=== PATIENT | male | born 1950 | race Asian ===

== ENCOUNTER 2020-03-21 15:13 | Inpatient (IN) | payer MEDICARE, OTHER ==
[~2020-03-21] VITALS: Ht 162.6 cm; Wt 59.9 kg
[2020-03-21 16:15] LABS: *BILIRUBIN,URIN NEGATIVE (NEGATIVE); *CLARITY,URINE CLEAR (CLEAR); *COLOR,URINE YELLOW (YELLOW); *KETONES,URINE TRACE (NEGATIVE); LEUKOCYTE ESTERASE ,URINE NEGATIVE (NEGATIVE); NITRITE, URINE NEGATIVE (NEGATIVE); PH,URINE 5.5 (5.0-8.0); UGLUCOSE 2+ (NEGATIVE)
[2020-03-21 16:17] LABS: BASOPHILS # (AUTO) 0.1 K/uL (0.0-8.0); BASOPHILS % (AUTO) 1.1 % (0.0-2.0); EOSINOPHILS # (AUTO) 0.1 K/uL (0.0-0.7); EOSINOPHILS % (AUTO) 0.8 % (0.0-7.0); HEMATOCRIT 47.9 % (36.7-47.1); HEMOGLOBIN 16.6 g/dL (12.5-16.3); LYMPHOCYTES # (AUTO) 1.9 K/uL (20.0-40.0); LYMPHOCYTES % (AUTO) 20.4 % (20.5-51.5); MEAN CORPUSCULAR HEMOGLOBIN 29.5 uug (23.8-33.4); MEAN CORPUSCULAR HGB CONC 35 g/dL (32.5-36.3); MEAN CORPUSCULAR VOLUME 85.5 fL (73.0-96.2); MONOCYTES # (AUTO) 0.5 K/uL (2.0-10.0); MONOCYTES % (AUTO) 5.3 % (0.0-11.0); NEUTROPHILS # (AUTO) 6.6 K/uL (1.8-8.9); NEUTROPHILS % (AUTO) 72.4 % (38.5-71.5); PLATELET COUNT (AUTO) 195 K/uL (152-348); RED BLOOD CELL COUNT(AUTO) 5.61 MIL/uL (4.06-5.63); WHITE BLOOD COUNT (AUTO) 9.1 K/uL (3.6-10.2)
[2020-03-21 16:17] LABS: *BLOOD, URINE TRACE LYSED (NEGATIVE)
[2020-03-21 16:27] LABS: CARBON DIOXIDE 33 mmol/L (21-32); CHLORIDE 99 mmol/L (98-107); CREATININE 1.3 mg/dL (0.6-1.3); GLUCOSE 267 mg/dL (74-106); POTASSIUM 3.6 mmol/L (3.5-5.1); UREA NITROGEN, BLOOD 18 mg/dL (7-18)
[2020-03-21 16:33] LABS: ACETAMINOPHEN < 2.0 ug/mL (10-30); ALANINE AMINOTRANSFERASE 23 U/L (16-63); ALKALINE PHOSPHATASE 118 U/L (50-136); ASPARTATE AMINOTRANSFERASE 15 U/L (15-37); BILIRUBIN,DIRECT 0.1 mg/dL (0.0-0.2); BILIRUBIN,TOTAL 0.3 mg/dL (0.2-1.0)
[2020-03-21 16:34] LABS: ETHANOL < 3 MG/DL (0-0)
[2020-03-21 16:35] LABS: *AMPHETAMINE, URINE NEGATIVE (NEGATIVE); *CANNABINOID, URINE NEGATIVE (NEGATIVE); *COCCAINE, URINE NEGATIVE (NEGATIVE); *OPIATE, URINE NEGATIVE (NEGATIVE); *PHENCYCLIDINE SCREEN,URINE NEGATIVE (NEGATIVE)
[2020-03-21 16:40] LABS: THYROID STIMULATING HORMONE 0.858 mIU/mL (0.358-3.740)
--- NOTE | 2020-03-21 16:50 | NUR ---
PT'S DAUGHTER REQUESTED TO BRING LIST OF MEDICATIONS, IF ANY , FOR RECONCILIATION - WAITING FOR CALLBACK.
--- NOTE | 2020-03-21 17:10 | NUR ---
Called [facility] for psych eval, eta 1hr.
--- NOTE | 2020-03-21 17:36 | NUR ---
Pt eating dinner, NAD noted.
[2020-03-21 19:24] LABS: BACTERIA,URINE FEW /HPF (NONE SEEN); SQUAMOUS EPITHELIAL CELL,UR FEW /HPF (NONE SEEN); WBC,URINE 0-3 /HPF (0-3)
--- NOTE | 2020-03-21 19:58 | NUR ---
transfered to MHU via wheelchair to MHU.
[2020-03-21] MEDS ORDERED: TEMAZEPAM 7.5 MG CAPSULE PO PRN (20:00)
[2020-03-21] MEDS ORDERED: MAG HYDROX/AL HYDROX/SIMETH 30 ML LIQUID UDC PO PRN (20:00)
[2020-03-21] MEDS ORDERED: ACETAMINOPHEN 325 MG TABLET PO PRN (20:00)
[2020-03-21] MEDS ORDERED: MAGNESIUM HYDROXIDE 30 ML LIQUID UDC PO PRN (20:00)
[2020-03-21] MEDS ORDERED: LORAZEPAM 1 MG TABLET PO PRN (20:00)
[2020-03-21 20:12] VITALS: BP 125/61
[2020-03-21] MEDS ORDERED: INSULIN GLARGINE,HUM 300 UNITS/3 ML CARTRIDGE SQ ONE ×2 (20:48→21:07)
[2020-03-21] MEDS ORDERED: DEXTROSE 50% 50 ML DISP.SYRIN IV PRN (21:00)
[2020-03-21] MEDS: BLOOD SUGAR DIAGNOSTIC 1 EACH STRIP VI SCH (21:01)
[2020-03-21] MEDS ORDERED: HUM INSULIN NPH/REG INSULIN HM 70/30 1000 UNITS/10 ML VIAL SQ ONE (21:06)
[2020-03-21] MEDS: INSULIN REGULAR, HUMAN 300 UNITS/3 ML VIAL SQ PRN (21:44)
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
[2020-03-22] MEDS: BLOOD SUGAR DIAGNOSTIC 1 EACH STRIP VI SCH ×5 (06:38→20:56)
[2020-03-22 07:30] VITALS: BP 172/80
[2020-03-22] MEDS: ESCITALOPRAM OXALATE 10 MG TABLET PO SCH (09:08)
[2020-03-22] MEDS: INSULIN REGULAR, HUMAN 300 UNIT/3 ML VIAL SQ PRN ×3 (09:09→18:33)
--- NOTE | 2020-03-22 13:47 | NUR ---
Initial Discharge Plan: Pt currently resides in a home located at [address] [place] [address] with an elderly woman. Per pt's daughter, Ashlee ([phone]), pt cannot return to the home that he was residing at because the elderly woman does not feel comfortable. BENJAMÍN will work with the pt, pts family and pts MD regarding approprite discharge planning. SW will form a safe and proper discharge plan.
--- NOTE | 2020-03-22 13:48 | NUR ---
Family Contact: SW spoke with the pt's daughter, Ashlee ([phone]), and pts sister in law, Rimma ([phone]), on a conference call. Pts discharge plan was discussed as the pt cannot return to his home. SW recommended SNF and the pts sister in law stated that she lives in [place] and would like the SW to refer the pt to either [facility] SNF or [facility] SNF. SW stated that she would and will keep the pts family updated.
--- NOTE | 2020-03-22 14:12 | NUR ---
Firearms Report: Hydrate Control Tender completed and submitted a DOJ firearms report for 5150 grave disability certification. A copy of report has been placed in patient chart.
[2020-03-22 15:20] VITALS: BP 151/70
[2020-03-22 20:00] VITALS: BP 163/72
[2020-03-22] MEDS: INSULIN GLARGINE,HUM 300 UNITS/3 ML CARTRIDGE SQ SCH (20:59)
[2020-03-22] MEDS: INSULIN REGULAR, HUMAN 300 UNITS/3 ML VIAL SQ PRN (21:01)
[2020-03-22 21:19] VITALS: BP 149/84
[2020-03-23] MEDS: BLOOD SUGAR DIAGNOSTIC 1 EACH STRIP VI SCH ×4 (06:33→20:23)
[2020-03-23 07:30] VITALS: BP 167/61
[2020-03-23] MEDS: CLOTRIMAZOLE 1% CREAM 30 GM TUBE TOP SCH (10:06)
[2020-03-23] MEDS: ESCITALOPRAM OXALATE 10 MG TABLET PO SCH (10:06)
[2020-03-23] MEDS: INSULIN REGULAR, HUMAN 300 UNIT/3 ML VIAL SQ PRN ×2 (12:25→18:02)
[2020-03-23 16:00] VITALS: BP 168/86
--- NOTE | 2020-03-23 17:07 | NUR ---
called and spoke with patients Daughter Ashlee regarding the medication history of the patient, patient bp today was at 160/70, daughter verbalizes that all she knows that his taking Lisinopril 2omg BID and been not compliant at home, tried to ask regarding patient history , daughter don't have the information and patient says on interview that its been a while that his not been taking medication at home and not seeing his PCP, called and spoke with CIRCULAR SHEAR OPERATOR Briseida about the information , with new orders made , will continue monitor patient
[2020-03-23] MEDS ORDERED: LISINOPRIL 20 MG TABLET PO ONE (17:30)
[2020-03-23 20:00] VITALS: BP 164/78
--- NOTE | 2020-03-23 20:10 | NUR ---
Patient calm and cooperative, interacts with staff, semi fair judgement, semi fair insight. Patient is med compliant. Patient will remain in a psych facility for further evaluation and treatment.
[2020-03-23] MEDS: LISINOPRIL 20 MG TABLET PO SCH (20:24)
[2020-03-23] MEDS: INSULIN GLARGINE,HUM 300 UNITS/3 ML CARTRIDGE SQ SCH (20:27)
[2020-03-23] MEDS: INSULIN REGULAR, HUMAN 300 UNITS/3 ML VIAL SQ PRN (20:31)
[2020-03-24] MEDS: BLOOD SUGAR DIAGNOSTIC 1 EACH STRIP VI SCH ×4 (06:38→20:31)
[2020-03-24 07:30] VITALS: BP 169/75
[2020-03-24] MEDS: ESCITALOPRAM OXALATE 10 MG TABLET PO SCH (09:29)
[2020-03-24] MEDS: LISINOPRIL 20 MG TABLET PO SCH ×2 (09:29→20:16)
[2020-03-24] MEDS: INSULIN REGULAR, HUMAN 300 UNIT/3 ML VIAL SQ PRN ×3 (09:31→17:35)
[2020-03-24] MEDS: CLOTRIMAZOLE 1% CREAM 30 GM TUBE TOP SCH (10:07)
--- NOTE | 2020-03-24 10:17 | NUR ---
BENJAMÍN SNF REFERRAL: BENJAMÍN faxed SNF referral to Luanne residence life coordinator at [facility] ([facility]) located at [address] [place] [phone] for review.
--- NOTE | 2020-03-24 13:13 | NUR ---
SNF CONTACT: SW contacted [facility] Address: [address], [place] [address] and spoke with Laura, rental coordinator who stated facility is currently on an admissions hold and cannot accept new pts at this time.
--- NOTE | 2020-03-24 14:43 | NUR ---
SW SNF CONTACT: SW received a call from Luanne admissions consultant at [facility] ([facility]) located at [address] [place] [id number] stating pt has been accepted to the facility.
--- NOTE | 2020-03-24 14:44 | NUR ---
BENJAMÍN FAMILY CONTACT: BENJAMÍN spoke with the pt's daughter, Ashlee ([phone]) to inform her pt has been accepted to [facility]. Daughter agrees with discharge plan.
--- NOTE | 2020-03-24 15:14 | NUR ---
SW GROUP THERAPY: pt was asleep and not easily roused by verbal cues.
[2020-03-24 16:59] VITALS: BP 149/74
[2020-03-24 20:00] VITALS: BP 160/68
[2020-03-24] MEDS: INSULIN GLARGINE,HUM 300 UNITS/3 ML CARTRIDGE SQ SCH (20:34)
[2020-03-24] MEDS: INSULIN REGULAR, HUMAN 300 UNITS/3 ML VIAL SQ PRN (20:40)
--- NOTE | 2020-03-25 06:20 | NUR ---
GPS: Patient Remain calm and cooperative through the shift, interacts with staff, semi fair judgement and insight. slept 8 hrs through the night. no agitation noted. continue plan of care.
[2020-03-25] MEDS: BLOOD SUGAR DIAGNOSTIC 1 EACH STRIP VI SCH ×4 (06:30→21:09)
[2020-03-25 07:30] VITALS: BP 162/80
--- NOTE | 2020-03-25 08:00 | NUR ---
patient resting quietly and comfortably in his assigned bed. patient denies suicidal and homicidal ideation. patient is able to verbalize his needs to staff. he is able to perform self care and ADL's independently. patient is adherent with medication, no adverse reaction noted.
[2020-03-25] MEDS: ESCITALOPRAM OXALATE 10 MG TABLET PO SCH (08:47)
[2020-03-25] MEDS: LISINOPRIL 20 MG TABLET PO SCH ×2 (08:47→21:12)
[2020-03-25] MEDS: INSULIN REGULAR, HUMAN 300 UNIT/3 ML VIAL SQ PRN ×2 (08:48→12:50)
[2020-03-25] MEDS: CLOTRIMAZOLE 1% CREAM 30 GM TUBE TOP SCH (09:00)
--- NOTE | 2020-03-25 13:59 | NUR ---
0850- 214. 6 units of insulin per sliding scale administered in Left upper arm. no adverse reaction. patient is showing no signs/symptoms of hyperglycemia. he is able to tolerate food and fluids. educated about s/s of hyperglycemia and to notify staff if these occur, verbalizes understanding.
--- NOTE | 2020-03-25 14:01 | NUR ---
1250- BS 305. 12 units of insulin per sliding scale administered in right upper arm. no adverse reaction. patient is showing no signs/symptoms of hyperglycemia. he is able to tolerate food and fluids. educated about s/s of hyperglycemia and to notify staff if these occur, verbalizes understanding. resting calmly and quietly in his assigned bed.
[2020-03-25 15:19] VITALS: BP 142/74
[2020-03-25 20:00] VITALS: BP 139/68
[2020-03-25] MEDS: INSULIN GLARGINE,HUM 300 UNITS/3 ML CARTRIDGE SQ SCH (21:15)
[2020-03-25] MEDS: INSULIN REGULAR, HUMAN 300 UNITS/3 ML VIAL SQ PRN (21:18)
[2020-03-26] MEDS: BLOOD SUGAR DIAGNOSTIC 1 EACH STRIP VI SCH ×4 (06:54→20:56)
[2020-03-26 07:30] VITALS: BP 163/76
[2020-03-26] MEDS: INSULIN REGULAR, HUMAN 300 UNIT/3 ML VIAL SQ PRN ×3 (07:53→16:43)
[2020-03-26] MEDS: LISINOPRIL 20 MG TABLET PO SCH ×2 (08:38→20:56)
[2020-03-26] MEDS: ESCITALOPRAM OXALATE 10 MG TABLET PO SCH (08:38)
[2020-03-26] MEDS: CLOTRIMAZOLE 1% CREAM 30 GM TUBE TOP SCH (08:39)
[2020-03-26 15:05] VITALS: BP 121/52
[2020-03-26 20:05] VITALS: BP 159/73
[2020-03-26] MEDS: INSULIN GLARGINE,HUM 300 UNITS/3 ML CARTRIDGE SQ SCH (21:01)
--- NOTE | 2020-03-27 02:40 | NUR ---
RECEIVED PATIENT RESTING IN BED. CALM AND COOPERATIVE WITH HIS MEDICATIONS AND CARE. LOW ENERGY BUT DENIES SI/HI. BLOOD SUGAR CHECK 216. INSULIN LANTUS 10UNITS GIVEN .NO S/S OF HYPOGLYCEMIA NOTED. SAFE ENVIRONMENT PROVIDED AND VISUAL CHECKS MADE ON HIM.WILL CONTINUE TO MONITOR.
[2020-03-27] MEDS: BLOOD SUGAR DIAGNOSTIC 1 EACH STRIP VI SCH ×4 (06:27→20:54)
--- NOTE | 2020-03-27 06:33 | NUR ---
SLEPT WELL FOR 8:15 HOURS. BLOOD SUGAR CHECK WAS 160.
[2020-03-27 07:30] VITALS: BP 152/71
[2020-03-27] MEDS: INSULIN REGULAR, HUMAN 300 UNIT/3 ML VIAL SQ PRN ×2 (07:37→16:35)
[2020-03-27] MEDS: ESCITALOPRAM OXALATE 10 MG TABLET PO SCH (08:14)
[2020-03-27] MEDS: LISINOPRIL 20 MG TABLET PO SCH ×2 (08:15→20:52)
[2020-03-27] MEDS: CLOTRIMAZOLE 1% CREAM 30 GM TUBE TOP SCH (08:15)
[2020-03-27 16:06] VITALS: BP 138/67
[2020-03-27 20:13] VITALS: BP 141/70
[2020-03-27] MEDS: ATORVASTATIN 10 MG TABLET PO SCH (20:52)
[2020-03-27] MEDS: INSULIN GLARGINE,HUM 300 UNITS/3 ML CARTRIDGE SQ SCH (20:56)
[2020-03-27] MEDS: INSULIN REGULAR, HUMAN 300 UNITS/3 ML VIAL SQ PRN (21:07)
--- NOTE | 2020-03-28 02:18 | NUR ---
RECEIVED PATIENT RESTING IN BED. ISOLATIVE BUT CALM AND COOPERATIVE WITH HIS MEDICATIONS AND CARE. DENIES SI/HI. BLOOD SUGAR CHECK 151. INSULIN LANTUS 15 UNITS AND COVERAGE BY SLIDING SCALE GIVEN . NO S/S OF HYPOGLYCEMIA NOTED. SAFE ENVIRONMENT PROVIDED AND VISUAL CHECKS MADE ON HIM.WILL CONTINUE TO MONITOR.
[2020-03-28] MEDS: BLOOD SUGAR DIAGNOSTIC 1 EACH STRIP VI SCH ×4 (06:44→20:07)
--- NOTE | 2020-03-28 06:45 | NUR ---
HE SLEPT FOR 7:15 HOURS. HE HAS HAD A SHOWER AND BLOOD SUGAR CHECK IS 216
[2020-03-28 07:30] VITALS: BP 166/79
[2020-03-28 07:35] LABS: BASOPHILS # (AUTO) 0.1 K/uL (0.0-8.0); BASOPHILS % (AUTO) 0.9 % (0.0-2.0); EOSINOPHILS # (AUTO) 0.1 K/uL (0.0-0.7); EOSINOPHILS % (AUTO) 0.8 % (0.0-7.0); HEMATOCRIT 48.5 % (36.7-47.1); HEMOGLOBIN 16.5 g/dL (12.5-16.3); LYMPHOCYTES # (AUTO) 1.7 K/uL (20.0-40.0); LYMPHOCYTES % (AUTO) 21.4 % (20.5-51.5); MEAN CORPUSCULAR HEMOGLOBIN 29.3 uug (23.8-33.4); MEAN CORPUSCULAR HGB CONC 34 g/dL (32.5-36.3); MEAN CORPUSCULAR VOLUME 86.3 fL (73.0-96.2); MONOCYTES # (AUTO) 0.4 K/uL (2.0-10.0); MONOCYTES % (AUTO) 4.7 % (0.0-11.0); NEUTROPHILS # (AUTO) 5.7 K/uL (1.8-8.9); NEUTROPHILS % (AUTO) 72.2 % (38.5-71.5); PLATELET COUNT (AUTO) 190 K/uL (152-348); RED BLOOD CELL COUNT(AUTO) 5.63 MIL/uL (4.06-5.63); WHITE BLOOD COUNT (AUTO) 7.9 K/uL (3.6-10.2)
[2020-03-28 08:35] LABS: BILIRUBIN,TOTAL 0.5 mg/dL (0.2-1.0); CREATININE 1.1 mg/dL (0.6-1.3); MAGNESIUM 2.1 mg/dL (1.8-2.4); PHOSPHOROUS 3.4 mg/dL (2.5-4.9); POTASSIUM 4.8 mmol/L (3.5-5.1); TOTAL PROTEIN, SERUM 7.3 g/dL (6.4-8.2)
[2020-03-28] MEDS: ESCITALOPRAM OXALATE 10 MG TABLET PO SCH (08:38)
[2020-03-28] MEDS: ASPIRIN EC 81 MG TABLET.DR PO SCH (08:38)
[2020-03-28] MEDS: LISINOPRIL 20 MG TABLET PO SCH ×2 (08:39→20:08)
[2020-03-28] MEDS: CLOTRIMAZOLE 1% CREAM 30 GM TUBE TOP SCH (08:39)
[2020-03-28] MEDS: INSULIN REGULAR, HUMAN 300 UNIT/3 ML VIAL SQ PRN ×3 (08:43→16:52)
--- NOTE | 2020-03-28 13:24 | NUR ---
PC HEARING NOTIFICATION: Patient has probable cause hearing today and it was upheld for Grave Disability.
[2020-03-28 15:21] VITALS: BP 122/59
[2020-03-28] MEDS: ATORVASTATIN 10 MG TABLET PO SCH (20:08)
[2020-03-28] MEDS: INSULIN GLARGINE,HUM 300 UNITS/3 ML CARTRIDGE SQ SCH (20:10)
[2020-03-28] MEDS: INSULIN REGULAR, HUMAN 300 UNITS/3 ML VIAL SQ PRN (20:12)
[2020-03-28 20:28] VITALS: BP 130/68
--- NOTE | 2020-03-29 06:13 | NUR ---
nsg: Remain calm and cooperative with meds and care. no behavior problem noted. slept 7.30 hrs through the night. resting in bed comfortably. continue plan of care.
[2020-03-29] MEDS: BLOOD SUGAR DIAGNOSTIC 1 EACH STRIP VI SCH ×4 (06:36→20:39)
--- NOTE | 2020-03-29 06:48 | NUR ---
Pt refused weight this shift
[2020-03-29 07:30] VITALS: BP 117/58
[2020-03-29] MEDS: ASPIRIN EC 81 MG TABLET.DR PO SCH (08:41)
[2020-03-29] MEDS: ESCITALOPRAM OXALATE 10 MG TABLET PO SCH (08:41)
[2020-03-29] MEDS: CLOTRIMAZOLE 1% CREAM 30 GM TUBE TOP SCH (08:42)
[2020-03-29] MEDS: LISINOPRIL 20 MG TABLET PO SCH ×2 (08:42→20:39)
[2020-03-29] MEDS: INSULIN REGULAR, HUMAN 300 UNIT/3 ML VIAL SQ PRN ×3 (08:43→16:31)
[2020-03-29 16:23] VITALS: BP 121/61
[2020-03-29 20:00] VITALS: BP 124/56
[2020-03-29] MEDS: ATORVASTATIN 10 MG TABLET PO SCH (20:38)
[2020-03-29] MEDS: INSULIN GLARGINE,HUM 300 UNITS/3 ML CARTRIDGE SQ SCH (20:40)
[2020-03-29] MEDS: INSULIN REGULAR, HUMAN 300 UNITS/3 ML VIAL SQ PRN (21:00)
--- NOTE | 2020-03-30 06:16 | NUR ---
Patient slept well about 8.15 hrs.Calm and cooperative.No behavior problem noted through out the night.Continue safety measures.
[2020-03-30] MEDS: BLOOD SUGAR DIAGNOSTIC 1 EACH STRIP VI SCH ×4 (06:36→21:00)
[2020-03-30 07:30] VITALS: BP 157/75
[2020-03-30] MEDS: ASPIRIN EC 81 MG TABLET.DR PO SCH (08:26)
[2020-03-30] MEDS: ESCITALOPRAM OXALATE 10 MG TABLET PO SCH (08:26)
[2020-03-30] MEDS: LISINOPRIL 20 MG TABLET PO SCH ×2 (08:27→20:49)
[2020-03-30] MEDS: CLOTRIMAZOLE 1% CREAM 30 GM TUBE TOP SCH (08:27)
[2020-03-30] MEDS: INSULIN REGULAR, HUMAN 300 UNIT/3 ML VIAL SQ PRN ×3 (08:30→16:28)
--- NOTE | 2020-03-30 12:32 | NUR ---
BENJAMÍN SNF CONTACT: BENJAMÍN spoke with Luanne ([phone]) at [facility] and confirmed patient's discharge plan for Saturday next week. Patient tow picker is arranged by the facilitys transportation at 11:30AM. BENJAMÍN faxed patient updated clinicals to Luanne.
[2020-03-30 15:51] VITALS: BP 141/73
--- NOTE | 2020-03-30 17:48 | NUR ---
Received patient in his room, AOx3, patient calm cooperative, in good mood,patient compliant with medication denies SI and Hi, patient monitored [id number] for safety, assisted with ADL, no sign of distress
[2020-03-30 20:00] VITALS: BP 164/72
[2020-03-30] MEDS: ATORVASTATIN 10 MG TABLET PO SCH (20:49)
[2020-03-30] MEDS: INSULIN GLARGINE,HUM 300 UNITS/3 ML CARTRIDGE SQ SCH (20:52)
[2020-03-30] MEDS: INSULIN REGULAR, HUMAN 300 UNITS/3 ML VIAL SQ PRN (20:54)
--- NOTE | 2020-03-30 22:20 | NUR ---
PATIENT RECEIVED IN BED AWAKE, ALERT/ORIENTED X2. PATIENT IN NO APPARENT DISTRESS, NO AGITATION NOTED, AND NO AGGRESSIVE BEHAIVOR. PATIENT IS COMPLAINT WITH MEDICATION/CARE/DIET. SAFE ENVIRONMENT PROVIDED,FREQUENT ROUNDING, AND CLUTTER FREE ENVIRONMENT. BED IN LOWEST POSITION, BED LOCKED, AND BED ALARM ON WHILE IN BED.
[2020-03-31] MEDS: BLOOD SUGAR DIAGNOSTIC 1 EACH STRIP VI SCH ×4 (06:42→20:58)
[2020-03-31 07:30] VITALS: BP 121/52
[2020-03-31] MEDS: ASPIRIN EC 81 MG TABLET.DR PO SCH (09:06)
[2020-03-31] MEDS: ESCITALOPRAM OXALATE 10 MG TABLET PO SCH (09:07)
[2020-03-31] MEDS: LISINOPRIL 20 MG TABLET PO SCH ×2 (09:12→20:40)
[2020-03-31] MEDS: INSULIN REGULAR, HUMAN 300 UNIT/3 ML VIAL SQ PRN ×3 (09:20→17:46)
[2020-03-31] MEDS: CLOTRIMAZOLE 1% CREAM 30 GM TUBE TOP SCH (12:57)
[2020-03-31 16:00] VITALS: BP 143/74
--- NOTE | 2020-03-31 17:00 | NUR ---
Gps/Section Cutter- Attends and participates in his group therapy, Compliant with his routine medications, Tends to isolate self, prompting needed
[2020-03-31 20:00] VITALS: BP 159/79
[2020-03-31] MEDS: ATORVASTATIN 10 MG TABLET PO SCH (20:40)
[2020-03-31] MEDS: INSULIN REGULAR, HUMAN 300 UNITS/3 ML VIAL SQ PRN (20:43)
[2020-03-31] MEDS: INSULIN GLARGINE,HUM 300 UNITS/3 ML CARTRIDGE SQ SCH (20:45)
--- NOTE | 2020-03-31 21:26 | NUR ---
PATIENT RECEIVED IN BED AWAKE, ALERT/ORIENTED X2. PATIENT IN NO APPARENT DISTRESS, NO AGITATION NOTED, AND NO AGGRESSIVE BEHAVIOR. PATIENT IS COMPLAINT WITH MEDICATION/CARE/DIET. SAFE ENVIRONMENT PROVIDED,FREQUENT ROUNDING, AND CLUTTER FREE ENVIRONMENT. BED IN LOWEST POSITION, BED LOCKED, AND BED ALARM ON WHILE IN BED.
[2020-04-01] MEDS: BLOOD SUGAR DIAGNOSTIC 1 EACH STRIP VI SCH ×4 (06:48→20:34)
[2020-04-01 07:30] VITALS: BP 110/62
[2020-04-01] MEDS: ESCITALOPRAM OXALATE 10 MG TABLET PO SCH (08:41)
[2020-04-01] MEDS: ASPIRIN EC 81 MG TABLET.DR PO SCH (08:42)
[2020-04-01] MEDS: LISINOPRIL 20 MG TABLET PO SCH ×2 (08:42→20:10)
[2020-04-01] MEDS: CLOTRIMAZOLE 1% CREAM 30 GM TUBE TOP SCH (08:43)
[2020-04-01] MEDS: INSULIN REGULAR, HUMAN 300 UNIT/3 ML VIAL SQ PRN ×3 (08:47→16:58)
[2020-04-01 16:00] VITALS: BP 112/56
--- NOTE | 2020-04-01 17:27 | NUR ---
Gps/Laborer Starch Factory- Had been quiet most of the day, calm, in and out of the activity room, redirectable, guarded. Encouraged continued verbalizations of his feelings
[2020-04-01] MEDS: ATORVASTATIN 10 MG TABLET PO SCH (20:10)
[2020-04-01 20:25] VITALS: BP 130/62
[2020-04-01] MEDS: INSULIN GLARGINE,HUM 300 UNITS/3 ML CARTRIDGE SQ SCH (20:36)
[2020-04-01] MEDS: INSULIN REGULAR, HUMAN 300 UNITS/3 ML VIAL SQ PRN (20:38)
[2020-04-02] MEDS: BLOOD SUGAR DIAGNOSTIC 1 EACH STRIP VI SCH ×4 (06:40→20:47)
[2020-04-02 07:30] VITALS: BP 138/68
[2020-04-02] MEDS: INSULIN REGULAR, HUMAN 300 UNIT/3 ML VIAL SQ PRN ×3 (08:13→16:39)
[2020-04-02] MEDS: CLOTRIMAZOLE 1% CREAM 30 GM TUBE TOP SCH (08:43)
[2020-04-02] MEDS: ASPIRIN EC 81 MG TABLET.DR PO SCH (08:43)
[2020-04-02] MEDS: ESCITALOPRAM OXALATE 10 MG TABLET PO SCH (08:43)
[2020-04-02] MEDS: LISINOPRIL 20 MG TABLET PO SCH ×2 (08:44→20:28)
[2020-04-02 16:11] VITALS: BP 92/52
[2020-04-02 20:00] VITALS: BP 135/55
[2020-04-02] MEDS: ATORVASTATIN 10 MG TABLET PO SCH (20:28)
[2020-04-02] MEDS: INSULIN REGULAR, HUMAN 300 UNITS/3 ML VIAL SQ PRN (20:35)
[2020-04-02] MEDS: INSULIN GLARGINE,HUM 300 UNITS/3 ML CARTRIDGE SQ SCH (20:37)
--- NOTE | 2020-04-03 06:26 | NUR ---
NSG: Patient Remain calm and cooperative with meds and care. showered this morning. no behavior problem noted. slept will through the night. resting in bed comfortably. continue plan of care.
--- NOTE | 2020-04-03 06:54 | NUR ---
slept 5.30 through the night.
[2020-04-03] MEDS: BLOOD SUGAR DIAGNOSTIC 1 EACH STRIP VI SCH ×4 (06:56→20:50)
[2020-04-03 07:30] VITALS: BP 127/67
[2020-04-03] MEDS: INSULIN REGULAR, HUMAN 300 UNIT/3 ML VIAL SQ PRN ×3 (08:00→17:13)
[2020-04-03] MEDS: ESCITALOPRAM OXALATE 10 MG TABLET PO SCH (08:09)
[2020-04-03] MEDS: ASPIRIN EC 81 MG TABLET.DR PO SCH (08:09)
[2020-04-03] MEDS: LISINOPRIL 20 MG TABLET PO SCH ×2 (08:09→20:38)
[2020-04-03] MEDS: CLOTRIMAZOLE 1% CREAM 30 GM TUBE TOP SCH (08:10)
[2020-04-03 16:00] VITALS: BP 126/70
[2020-04-03 20:03] VITALS: BP 101/50
--- NOTE | 2020-04-03 20:14 | NUR ---
Patient in activity room watching TV.Alert x2.Calm and cooperative.Guarded.Denies pain or discomfort.Compliant with medication .HS snacks provided prior to insulin adm.Continue safery measures and will continue to monitor.
[2020-04-03 20:26] VITALS: BP 162/82
[2020-04-03] MEDS: ATORVASTATIN 10 MG TABLET PO SCH (20:38)
[2020-04-03] MEDS: INSULIN GLARGINE,HUM 300 UNITS/3 ML CARTRIDGE SQ SCH (20:50)
[2020-04-03] MEDS: INSULIN REGULAR, HUMAN 300 UNITS/3 ML VIAL SQ PRN (20:52)
--- NOTE | 2020-04-04 05:36 | NUR ---
Patient walking in the hallway.When asked if he's ok .Patient stated he's doing fine and just doing morning exercise.Patient slept 7 hrs.
[2020-04-04] MEDS: BLOOD SUGAR DIAGNOSTIC 1 EACH STRIP VI SCH ×4 (06:30→21:36)
[2020-04-04 07:30] VITALS: BP 132/72
[2020-04-04] MEDS: ASPIRIN EC 81 MG TABLET.DR PO SCH (08:41)
[2020-04-04] MEDS: ESCITALOPRAM OXALATE 10 MG TABLET PO SCH (08:41)
[2020-04-04] MEDS: LISINOPRIL 20 MG TABLET PO SCH ×2 (08:42→20:51)
[2020-04-04] MEDS: INSULIN REGULAR, HUMAN 300 UNIT/3 ML VIAL SQ PRN ×2 (08:43→11:51)
[2020-04-04] MEDS: CLOTRIMAZOLE 1% CREAM 30 GM TUBE TOP SCH (08:45)
[2020-04-04 16:00] VITALS: BP 114/58
[2020-04-04 20:12] VITALS: BP 154/67
[2020-04-04] MEDS: ATORVASTATIN 10 MG TABLET PO SCH (20:51)
[2020-04-04] MEDS: INSULIN GLARGINE,HUM 300 UNITS/3 ML CARTRIDGE SQ SCH (20:55)
[2020-04-04] MEDS: INSULIN REGULAR, HUMAN 300 UNITS/3 ML VIAL SQ PRN (21:35)
[2020-04-05] MEDS: BLOOD SUGAR DIAGNOSTIC 1 EACH STRIP VI SCH (06:33)
[2020-04-05 07:36] VITALS: BP 137/68
--- NOTE | 2020-04-05 08:05 | NUR ---
Discharge Note: Patient will be discharged to [facility], [facility] ([phone]). Patient picked edge sewing machine operator is arranged by the facilitys transportation for today at 11:30AM. Enterprise Systems Administrator spoke with Luanne ([phone]), interactive media marketing strategist, who stated patient is able to return to facility today. Pts daughter, Ashlee ([phone]) is aware and agreeable with discharge plans. Patient is alert and oriented x3 and is not able to plan for self-care at this time but is willing to accept care provided for him at the facility. Patient denies any suicidal or homicidal ideation. Patient is aware and agreeable with discharge plans. Patient will follow up with Dr. Huff (Numerical Control Nesting Operator) and Dr. Alexander (Psychiatrist) at [facility]. Patient presents with euthymic mood and congruent affect.
[2020-04-05 08:43] VITALS: BP 137/68
[2020-04-05] MEDS: ASPIRIN EC 81 MG TABLET.DR PO SCH (08:43)
[2020-04-05] MEDS: ESCITALOPRAM OXALATE 10 MG TABLET PO SCH (08:43)
[2020-04-05] MEDS: LISINOPRIL 20 MG TABLET PO SCH (08:43)
[2020-04-05] MEDS: CLOTRIMAZOLE 1% CREAM 30 GM TUBE TOP SCH (08:43)
[2020-04-05] MEDS: INSULIN REGULAR, HUMAN 300 UNIT/3 ML VIAL SQ PRN (08:47)
--- NOTE | 2020-04-05 11:30 | NUR ---
GPS: Nursing Notes: Discharge Notes: Patient is awake and responding to his name, cooperative with nursing care, compliant with his medications, following staff directions, ambulatory, self care, forgetful, disoriented, denies SI/HI, denies AH/VH, denies pain or discomfort, denies SOB. discharge to [facility] at [address] [place] [address] , report given to Billy, charge nurse, took all his belongings with him, picked up by facility's transportation, Patient's daughterAshlee informed of discharge by public health social worker. Patient will follow up with Dr. Huff (tape maker) and Dr. Alexander (psychiatrist) for aftercare at the facility.
--- NOTE | 2020-04-05 12:05 | NUR ---
PATIENTS WAS INITIALLY ADMITTED TO GEROPSYCH UNIT ON 5250 HOLD FOR GRAVELY DISABLED, PATIENT UNABLE TO TO HAVE VIABLE CARE FOR HER SELF, PATIENT WAS PLACED IN EVERY 15MINUTES SAFETY CHECK AND WAS SEEN BY HER PSYCHIATRIST AND MEDICAL DOCTOR. PATIENT RECEIVED PSYCHOTHERAPY , MILIEU THERAPY , PHYSICAL THERAPY A DN PSYCHOTROPIC ,MEDICATIONS. SHE HAS BEEN COMPLIANT WITH MEDICATION REGIMEN HAS SHOWN IMPROVEMENT IN MOOD THOUGHT AND BEHAVIOR, ON ASSESSMENT PATIENT WAS RECEIVED ON THE DAY ROOM, AOX1-2, WITH NO SIGN S OF DISTRESS , PATIENT PRESENTED APPROPRIATE, WELL GROOMED AND PLEASANT TO TALK WITH , PATIENT CALM MOOD, SOFT SPEECH AND MAINTAINED EYE CONTACT. PATIENT WAS COOPERATIVE AND RESPONDED TO QUESTION APPROPRIATELY, PATIENT DENIES SI AND HI, , DENIES AH, VH, EXPRESSED FEELINGS WITH SOME OPTIMISM AND HOPE FOR THE FUTURE, THE PSYCHIATRIST WAS MADE AWARE OF PATIENTS CONDITION AND HE PROVIDED DISCHARGE ORDER. PATIENTS BELONGING AND VALUABLES WERE RETURNED TO THE PATIENT SIGNED AND ACKNOWLEDGED, PATIENT VERBALIZED UNDERSTANDING OF ALL THE EDUCATIONAL MATERIALS AND DISCHARGE INSTRUCTIONS, PATIENT WERE PICKED UP BY TRANSPORTATION PERSONNEL, ON A WHEELCHAIR TO BE TRANSPORTED TO THE DISCHARGE LOCATION, FAMILY AND MD AWARE,
== END 2020-04-05 11:30 | DRG 885 ==
LOC: ER 15:13 → GPS 19:52
PROVIDERS: ADMIT Psychiatry & Neurology Psychiatry; ATTEND Internal Medicine
PROC: 0HBRXZZ Excision of Toe Nail, External Approach (ICD-10-PCS; principal; 2020-03-22)
DX: F32.2 Major depressive disorder, single episode, severe without psychotic features (principal); E11.65 Type 2 diabetes mellitus with hyperglycemia; F23 Brief psychotic disorder; D68.69 Other thrombophilia; E11.42 Type 2 diabetes mellitus with diabetic polyneuropathy; B35.1 Tinea unguium; B35.3 Tinea pedis; E78.5 Hyperlipidemia, unspecified; Z74.09 Other reduced mobility; G93.89 Other specified disorders of brain; S06.309S Unspecified focal traumatic brain injury with loss of consciousness of unspecified duration, sequela; F03.90 Unspecified dementia, unspecified severity, without behavioral disturbance, psychotic disturbance, mood disturbance, and anxiety; I10 Essential (primary) hypertension; M19.90 Unspecified osteoarthritis, unspecified site; Z86.73 Personal history of transient ischemic attack (TIA), and cerebral infarction without residual deficits; Z87.891 Personal history of nicotine dependence; V89.2XXS Person injured in unspecified motor-vehicle accident, traffic, sequela; Z79.4 Long term (current) use of insulin; Z20.828 Contact with and (suspected) exposure to other viral communicable diseases
CPT/HCPCS: 36415; 70030-TC; 70450; 71045; 83735; 84100; 84443; 85025; 85730; 93005; A4663; G0480; J1815

== ENCOUNTER 2020-08-12 13:33 | Inpatient (IN) | payer MEDICARE, OTHER ==
[~2020-08-12] VITALS: Ht 165.1 cm; Wt 64.4 kg
[2020-08-12 14:11] LABS: BASOPHILS # (AUTO) 0.1 K/uL (0.0-8.0); BASOPHILS % (AUTO) 0.8 % (0.0-2.0); EOSINOPHILS # (AUTO) 0.2 K/uL (0.0-0.7); EOSINOPHILS % (AUTO) 1.9 % (0.0-7.0); HEMATOCRIT 44.3 % (36.7-47.1); LYMPHOCYTES # (AUTO) 2.3 K/uL (20.0-40.0); LYMPHOCYTES % (AUTO) 20.6 % (20.5-51.5); MEAN CORPUSCULAR HEMOGLOBIN 29.5 uug (23.8-33.4); MEAN CORPUSCULAR HGB CONC 34 g/dL (32.5-36.3); MEAN CORPUSCULAR VOLUME 87.1 fL (73.0-96.2); MONOCYTES # (AUTO) 0.6 K/uL (2.0-10.0); MONOCYTES % (AUTO) 5.9 % (0.0-11.0); NEUTROPHILS # (AUTO) 7.7 K/uL (1.8-8.9); NEUTROPHILS % (AUTO) 70.8 % (38.5-71.5); PLATELET COUNT (AUTO) 239 K/uL (152-348); RED BLOOD CELL COUNT(AUTO) 5.08 MIL/uL (4.06-5.63); WHITE BLOOD COUNT (AUTO) 10.9 K/uL (3.6-10.2)
[2020-08-12 14:23] LABS: *BILIRUBIN,URIN NEGATIVE (NEGATIVE); *BLOOD, URINE NEGATIVE (NEGATIVE); *CLARITY,URINE CLEAR (CLEAR); *COLOR,URINE YELLOW (YELLOW); *KETONES,URINE NEGATIVE (NEGATIVE); *UROBILINOGEN,URINE 0.2 E.U./dl (NORMAL); LEUKOCYTE ESTERASE ,URINE NEGATIVE (NEGATIVE); NITRITE, URINE NEGATIVE (NEGATIVE); UGLUCOSE 1+ (NEGATIVE)
[2020-08-12 14:25] LABS: CARBON DIOXIDE 27 mmol/L (21-32); CHLORIDE 97 mmol/L (98-107); CREATININE 1.4 mg/dL (0.6-1.3); GLUCOSE 207 mg/dL (74-106); POTASSIUM 5.4 mmol/L (3.5-5.1); UREA NITROGEN, BLOOD 28 mg/dL (7-18)
[2020-08-12] MEDS ORDERED: MELA3TAB41 PO (14:31)
[2020-08-12] MEDS ORDERED: INSU100I26 SQ (14:31)
[2020-08-12] MEDS ORDERED: ASPI81TA31 PO (14:31)
[2020-08-12] MEDS ORDERED: ASCO-375 PO (14:31)
[2020-08-12] MEDS ORDERED: LISI20TA30 PO (14:31)
[2020-08-12] MEDS ORDERED: MV-M1TAB18 PO (14:31)
[2020-08-12] MEDS ORDERED: INSU100V28 (14:31)
[2020-08-12] MEDS ORDERED: ATOR10TA PO (14:31)
[2020-08-12] MEDS ORDERED: ESCI10TA PO (14:31)
[2020-08-12 14:32] LABS: ALANINE AMINOTRANSFERASE 74 U/L (16-63); ALKALINE PHOSPHATASE 100 U/L (50-136); ASPARTATE AMINOTRANSFERASE 28 U/L (15-37); BILIRUBIN,DIRECT 0.1 mg/dL (0.0-0.2); BILIRUBIN,TOTAL 0.3 mg/dL (0.2-1.0); ETHANOL < 3 MG/DL (0-0); TOTAL PROTEIN, SERUM 7.9 g/dL (6.4-8.2)
[2020-08-12 14:34] LABS: ACETAMINOPHEN < 2.0 ug/mL (10-30)
[2020-08-12 14:35] LABS: *AMPHETAMINE, URINE NEGATIVE (NEGATIVE); *CANNABINOID, URINE NEGATIVE (NEGATIVE); *COCCAINE, URINE NEGATIVE (NEGATIVE); *OPIATE, URINE NEGATIVE (NEGATIVE); *PHENCYCLIDINE SCREEN,URINE NEGATIVE (NEGATIVE)
--- NOTE | 2020-08-12 16:20 | NUR ---
BENJAMÍN Rodarte, evaluated pt, is writing a 5150 hold for pt.
[2020-08-12 16:26] LABS: RBC,URINE 0-3 /HPF (0-3); WBC,URINE 0-3 /HPF (0-3)
[2020-08-12 16:27] LABS: BACTERIA,URINE FEW /HPF (NONE SEEN); SQUAMOUS EPITHELIAL CELL,UR FEW /HPF (NONE SEEN)
--- NOTE | 2020-08-12 16:55 | NUR ---
Pt attempted to go into hallway outside ER and go to his room x 2. Pt was redirected to ER.
--- NOTE | 2020-08-12 17:06 | NUR ---
Called report to BENJY Barton.
[2020-08-12 17:30] VITALS: BP 95/51
[2020-08-12] MEDS ORDERED: MAG HYDROX/AL HYDROX/SIMETH 30 ML LIQUID UDC PO PRN (17:30)
[2020-08-12] MEDS ORDERED: MAGNESIUM HYDROXIDE 30 ML LIQUID UDC PO PRN (17:30)
[2020-08-12] MEDS ORDERED: ACETAMINOPHEN 325 MG TABLET PO PRN (17:30)
[2020-08-12] MEDS ORDERED: TEMAZEPAM 7.5 MG CAPSULE PO PRN (17:30)
[2020-08-12] MEDS ORDERED: LORAZEPAM 0.5 MG TABLET PO PRN (17:30)
--- NOTE | 2020-08-12 17:30 | NUR ---
pt arrived to unit on w/c accompanied by ER nurse. pt is AOx2. Upon face to face, pt is slightly anxious but pleasant. He does not know where he is, and why he is here. All pertinent information gathered. No aggressive or combative behavior noted. V/S stable. In no acute distress. Dr. vasquez and Rachel called to be notified of pt's arrival.
[2020-08-12 20:04] VITALS: BP 127/61
[2020-08-12] MEDS ORDERED: DEXTROSE 50% 50 ML DISP.SYRIN IV PRN (22:00)
[2020-08-12] MEDS: INSULIN GLARGINE,HUM 300 UNITS/3 ML CARTRIDGE SQ SCH (22:00)
[2020-08-12] MEDS: MELATONIN 3 MG TABLET PO SCH (22:21)
--- NOTE | 2020-08-13 05:02 | NUR ---
Pt asleep at this time, no s/sx of distress. No c/o pain. Safety precautions in place. Frequent rounds done.
[2020-08-13] MEDS: BLOOD SUGAR DIAGNOSTIC 1 EACH STRIP VI SCH ×4 (06:14→20:01)
[2020-08-13 07:30] VITALS: BP 119/67
[2020-08-13] MEDS: NICOTINE 14 MG/24HR PATCH TD SCH (08:29)
[2020-08-13] MEDS: ASCORBIC ACID 500 MG TABLET PO SCH (08:29)
[2020-08-13] MEDS: ASPIRIN 81 MG TAB.CHEW PO SCH (08:29)
[2020-08-13] MEDS: LISINOPRIL 20 MG TABLET PO SCH ×2 (08:30→20:08)
[2020-08-13 08:51] LABS: BILIRUBIN,TOTAL 0.5 mg/dL (0.2-1.0); CREATININE 1.2 mg/dL (0.6-1.3); POTASSIUM 4.7 mmol/L (3.5-5.1); TOTAL PROTEIN, SERUM 7.6 g/dL (6.4-8.2)
[2020-08-13] MEDS: INSULIN REGULAR, HUMAN 300 UNIT/3 ML VIAL SQ PRN ×3 (11:48→20:05)
[2020-08-13] MEDS: ESCITALOPRAM OXALATE 10 MG TABLET PO SCH (12:44)
[2020-08-13 16:00] VITALS: BP 131/73
[2020-08-13] MEDS: INSULIN GLARGINE,HUM 300 UNITS/3 ML CARTRIDGE SQ SCH (20:04)
[2020-08-13 20:08] VITALS: BP 126/53
[2020-08-13] MEDS: ATORVASTATIN 10 MG TABLET PO SCH (20:08)
[2020-08-13] MEDS: MELATONIN 3 MG TABLET PO SCH (20:09)
--- NOTE | 2020-08-14 05:52 | NUR ---
Received patient last night in his room , quiet and isolating from peers. Marine Engineering Technicians encouraged patient to come to the day room for a snack. Patient asked policy writer typist to bring the snack to his room instead, not wanting to leave the room. Patient is alert, with on and off confusion and paranoia. Patient is medication compliant but does not want to shower when offered and unable to engage in any meaningful conversation. Continue to monitor patient for safety and behavior escalation. No aggression or combativeness noted at this time. Sleep hours were 7.15
[2020-08-14] MEDS: BLOOD SUGAR DIAGNOSTIC 1 EACH STRIP VI SCH ×4 (06:22→20:30)
[2020-08-14 07:30] VITALS: BP 107/61
[2020-08-14] MEDS: NICOTINE 14 MG/24HR PATCH TD SCH (08:43)
[2020-08-14] MEDS: ASCORBIC ACID 500 MG TABLET PO SCH (08:43)
[2020-08-14] MEDS: ASPIRIN 81 MG TAB.CHEW PO SCH (08:43)
[2020-08-14] MEDS: LISINOPRIL 20 MG TABLET PO SCH ×2 (08:44→20:08)
[2020-08-14] MEDS: INSULIN REGULAR, HUMAN 300 UNIT/3 ML VIAL SQ PRN ×4 (09:11→20:32)
[2020-08-14] MEDS: ESCITALOPRAM OXALATE 10 MG TABLET PO SCH (12:58)
[2020-08-14 16:00] VITALS: BP 96/53
[2020-08-14 19:40] VITALS: BP 131/61
[2020-08-14] MEDS: ATORVASTATIN 10 MG TABLET PO SCH (20:08)
[2020-08-14 20:10] VITALS: BP 123/60
[2020-08-14] MEDS: INSULIN GLARGINE,HUM 300 UNITS/3 ML CARTRIDGE SQ SCH (20:35)
[2020-08-14] MEDS: MELATONIN 3 MG TABLET PO SCH (21:12)
[2020-08-15] MEDS: BLOOD SUGAR DIAGNOSTIC 1 EACH STRIP VI SCH ×4 (06:22→20:52)
--- NOTE | 2020-08-15 06:24 | NUR ---
GPS: Remain calm and cooperative. no s/s of pain or discomfort noted at this time. slept 6 hrs through the night. patient is awake now sitting in day room watching tv. continue plan of care.
[2020-08-15 07:30] VITALS: BP 114/65
[2020-08-15 07:31] LABS: BASOPHILS % (AUTO) 0.5 % (0.0-2.0); EOSINOPHILS # (AUTO) 0.1 K/uL (0.0-0.7); EOSINOPHILS % (AUTO) 1.3 % (0.0-7.0); HEMATOCRIT 42.7 % (36.7-47.1); HEMOGLOBIN 14.4 g/dL (12.5-16.3); LYMPHOCYTES # (AUTO) 1.8 K/uL (20.0-40.0); LYMPHOCYTES % (AUTO) 19.9 % (20.5-51.5); MEAN CORPUSCULAR HEMOGLOBIN 29.4 uug (23.8-33.4); MEAN CORPUSCULAR HGB CONC 34 g/dL (32.5-36.3); MEAN CORPUSCULAR VOLUME 86.9 fL (73.0-96.2); MONOCYTES # (AUTO) 0.5 K/uL (2.0-10.0); MONOCYTES % (AUTO) 5.7 % (0.0-11.0); NEUTROPHILS # (AUTO) 6.6 K/uL (1.8-8.9); NEUTROPHILS % (AUTO) 72.6 % (38.5-71.5); PLATELET COUNT (AUTO) 225 K/uL (152-348); RED BLOOD CELL COUNT(AUTO) 4.91 MIL/uL (4.06-5.63); WHITE BLOOD COUNT (AUTO) 9.1 K/uL (3.6-10.2)
[2020-08-15 07:50] LABS: BILIRUBIN,TOTAL 0.4 mg/dL (0.2-1.0); CREATININE 1.1 mg/dL (0.6-1.3); POTASSIUM 4.8 mmol/L (3.5-5.1); TOTAL PROTEIN, SERUM 7.6 g/dL (6.4-8.2)
[2020-08-15] MEDS: NICOTINE 14 MG/24HR PATCH TD SCH (08:25)
[2020-08-15] MEDS: ASCORBIC ACID 500 MG TABLET PO SCH (08:25)
[2020-08-15] MEDS: ASPIRIN 81 MG TAB.CHEW PO SCH (08:25)
[2020-08-15] MEDS: LISINOPRIL 20 MG TABLET PO SCH ×2 (08:26→20:48)
[2020-08-15] MEDS: INSULIN REGULAR, HUMAN 300 UNIT/3 ML VIAL SQ PRN ×4 (08:32→20:58)
--- NOTE | 2020-08-15 09:13 | NUR ---
Firearms Report: Tire Center Manager completed and submitted a DOJ firearms report for 5150 grave disability certification. A copy of report has been placed in patient chart.
--- NOTE | 2020-08-15 10:13 | NUR ---
SW Family Contact: This SW contacted patient's daughter Nova ([phone]) to gather collateral and discuss treatment/discharge plan, however, she was unavailable and this SW left a voicemail.
--- NOTE | 2020-08-15 10:13 | NUR ---
SW Initial Discharge Plan: Patient currently resides at [address] [address]; and would want to return back upon discharge. This SW spoke with Luanne Candelaria who stated they will take patient back upon discharge. This SW contacted patient's daughter Nova ([phone]) to gather collateral and discuss treatment/discharge plan, however, she was unavailable and this SW left a voicemail. This SW will work with the patient, MD, family, and treatment team to coordinate proper discharge plan.
[2020-08-15] MEDS: ESCITALOPRAM OXALATE 10 MG TABLET PO SCH (12:56)
[2020-08-15 15:40] VITALS: BP 114/54
--- NOTE | 2020-08-15 15:45 | NUR ---
Individual Therapy: store worker met with patient for brief counseling and discussed patient's presenting problem disorganized thought content. Patient appeared confused, disorganized, and disoriented. Patient was unable to focus due to his confusion. SW unable to conduct therapy at this time.
[2020-08-15 19:30] VITALS: BP 112/62
[2020-08-15] MEDS: ATORVASTATIN 10 MG TABLET PO SCH (20:45)
[2020-08-15] MEDS: MELATONIN 3 MG TABLET PO SCH (20:45)
[2020-08-15] MEDS: INSULIN GLARGINE,HUM 300 UNITS/3 ML CARTRIDGE SQ SCH (20:57)
[2020-08-16] MEDS: BLOOD SUGAR DIAGNOSTIC 1 EACH STRIP VI SCH ×4 (06:31→20:32)
[2020-08-16 07:22] LABS: CREATININE 1.3 mg/dL (0.6-1.3); MAGNESIUM 2.3 mg/dL (1.8-2.4); PHOSPHOROUS 4.1 mg/dL (2.5-4.9); URIC ACID 7.6 mg/dL (3.5-7.2)
[2020-08-16 07:27] LABS: THYROID STIMULATING HORMONE 0.931 mIU/mL (0.358-3.740)
[2020-08-16 07:30] VITALS: BP 107/54
[2020-08-16] MEDS ORDERED: LORAZEPAM 1 MG TABLET PO PRN (08:00)
[2020-08-16] MEDS: NICOTINE 14 MG/24HR PATCH TD SCH (08:26)
[2020-08-16] MEDS: ASCORBIC ACID 500 MG TABLET PO SCH (08:26)
[2020-08-16] MEDS: ASPIRIN 81 MG TAB.CHEW PO SCH (08:26)
[2020-08-16] MEDS: LISINOPRIL 20 MG TABLET PO SCH ×2 (08:27→20:27)
[2020-08-16] MEDS: ESCITALOPRAM OXALATE 10 MG TABLET PO SCH (12:29)
[2020-08-16] MEDS: INSULIN REGULAR, HUMAN 300 UNIT/3 ML VIAL SQ PRN ×3 (12:31→20:44)
[2020-08-16 15:21] VITALS: BP 118/54
[2020-08-16 20:06] VITALS: BP 120/50
[2020-08-16] MEDS: MELATONIN 3 MG TABLET PO SCH (20:28)
[2020-08-16] MEDS: INSULIN GLARGINE,HUM 300 UNITS/3 ML CARTRIDGE SQ SCH (20:41)
[2020-08-17] MEDS: BLOOD SUGAR DIAGNOSTIC 1 EACH STRIP VI SCH ×4 (06:03→20:42)
--- NOTE | 2020-08-17 06:04 | NUR ---
GPS: Pt.slept for 6.30 last night. Blood sugar now is 169mg/dl. No increased agitation noted. Forgetful at times. Reality re-orientation provided prn. Safety emphasized. Will continue to monitor.
[2020-08-17 07:30] VITALS: BP 95/53
--- NOTE | 2020-08-17 07:30 | NUR ---
Received report from CORNELIO Méndez. All questions, comments, and concerns were addressed. Received patient asleep in his assigned bed. Bed is in low and locked position.
[2020-08-17] MEDS: LISINOPRIL 20 MG TABLET PO SCH ×2 (08:29→20:37)
[2020-08-17] MEDS: ASPIRIN 81 MG TAB.CHEW PO SCH (08:29)
[2020-08-17] MEDS: ASCORBIC ACID 500 MG TABLET PO SCH (08:29)
[2020-08-17] MEDS: INSULIN REGULAR, HUMAN 300 UNIT/3 ML VIAL SQ PRN ×4 (08:32→20:49)
[2020-08-17] MEDS: NICOTINE 14 MG/24HR PATCH TD SCH (08:35)
[2020-08-17] MEDS: ESCITALOPRAM OXALATE 10 MG TABLET PO SCH (12:28)
--- NOTE | 2020-08-17 12:49 | NUR ---
Court Hearing: Patient's court hearing was today and it was upheld for GD.
--- NOTE | 2020-08-17 14:40 | NUR ---
patient alert and oriented. He is anxious, withdrawn and guarded, but is cooperative with staff and redirectable. Patient is adherent with medication, no adverse reaction noted. Patient endorses SI with no concrete plan and no specific reasoning for feelings, he states "I have to think of one." Patient is able to contract for safety. He denies HI, denies AH/VH. Patient provided with education about coping mechanisms and how to communicate needs to staff appropriately. Patient encouraged to participate in the unit groups and therapeutic milieu. He is able to ambulate, perform self care and ADL's independently.
--- NOTE | 2020-08-17 14:46 | NUR ---
Patient has been coughing occasionally throughout the day, nonproductive cough. Patient denies SOB, chest pain, or difficulty breathing. Respirations are even and unlabored, no respiratory distress noted. Austin Salamanca, AUTOMATED EQUIPMENT ENGINEER TECHNICIAN notified. Orders given for Chest X ray.
[2020-08-17 16:00] VITALS: BP 94/46
[2020-08-17 20:12] VITALS: BP 113/57
[2020-08-17] MEDS: MELATONIN 3 MG TABLET PO SCH (20:37)
[2020-08-17] MEDS: INSULIN GLARGINE,HUM 300 UNITS/3 ML CARTRIDGE SQ SCH (20:45)
[2020-08-18] MEDS: BLOOD SUGAR DIAGNOSTIC 1 EACH STRIP VI SCH ×4 (06:34→20:32)
[2020-08-18 07:30] VITALS: BP 133/65
[2020-08-18] MEDS: INSULIN REGULAR, HUMAN 300 UNIT/3 ML VIAL SQ PRN ×4 (07:52→20:35)
[2020-08-18] MEDS: ASPIRIN 81 MG TAB.CHEW PO SCH (08:02)
[2020-08-18] MEDS: LISINOPRIL 20 MG TABLET PO SCH ×2 (08:02→20:31)
[2020-08-18] MEDS: NICOTINE 14 MG/24HR PATCH TD SCH (08:02)
[2020-08-18] MEDS: ASCORBIC ACID 500 MG TABLET PO SCH (08:02)
[2020-08-18] MEDS ORDERED: IV NS 1000 ML 1,000 ML IV ONE (09:00)
--- NOTE | 2020-08-18 09:09 | NUR ---
PATIENT SEEN AND EXAMINED BY DR JUAREZ WITH NEW ORDERS AND NOTED.
--- NOTE | 2020-08-18 10:40 | NUR ---
LOPEZ INSERTED GAUGE 20 TO HIS LEFT FOREARM WITH ONE ATTEMPT AND NS STARTED AT 100 ML ORDERED PATIENT IS SITTING ON THE GERICHAIR IN THE CHARTING ROOM TO ENABLE EASY OBSERVATION OF THE PATIENT WHILE HE IS ON IVF WILL CONTINUE TO OBSERVE.
[2020-08-18] MEDS: ESCITALOPRAM OXALATE 10 MG TABLET PO SCH (12:45)
--- NOTE | 2020-08-18 15:13 | NUR ---
Individual Therapy: warehouse production worker met with patient for brief counseling and assessed for patient's presenting problem disorganized thought content. Patient was asleep and did not want to conduct therapy at this time.
--- NOTE | 2020-08-18 15:30 | NUR ---
PATIENT STANDING UP AND PULLING HIS HEPLOCK STATED TIRED AND WANT TO GO BACK TO BED SO HIS IVF DISCONNECTED AT THIS TIME WILL RECONNECT HIM LATER WHEN HE IS ABLE TO COME OUT OF THE ROOM BECAUSE OF THE MENTAL HEALTH PROTOCOLS IVF CAANOT BE GIVEN IN THE ROOM BECAUSE OF THE TUBBING.
[2020-08-18 16:26] VITALS: BP 95/46
--- NOTE | 2020-08-18 17:15 | NUR ---
PATIENT BROUGHT INTO THE CHARTING ROOM AND IVF RESTARTED AT THIS TIME AT 100ML/HR ORDERED WITH NO S/S OF INFILTERATION ON SITE.
--- NOTE | 2020-08-18 18:00 | NUR ---
IVF IN PROGRESS ORDERED.
--- NOTE | 2020-08-18 20:00 | NUR ---
PATIENT SITTING IN BEBE-CHAIR IN RECEIVING IVF X1 BAG ORDERED. IVF INFUSING WELL TO LEFT FA #20 GAUGE. PT. IS A/O X3. PROVIDED SAFE AND THERAPEUTIC ENVIRONMENT. WILL CONTINUE TO MONITOR AND ASSESS.
[2020-08-18 20:02] VITALS: BP 120/57
[2020-08-18] MEDS: MELATONIN 3 MG TABLET PO SCH (20:31)
[2020-08-18] MEDS: INSULIN GLARGINE,HUM 300 UNITS/3 ML CARTRIDGE SQ SCH (20:33)
--- NOTE | 2020-08-18 22:35 | NUR ---
IVF INFUSED. PT ASSISTED TO BED. PROVIDED SAFE AND THERAPEUTIC ENVIRONMENT. WILL CONTINUE TO MONITOR AND ASSESS.
[2020-08-19] MEDS: BLOOD SUGAR DIAGNOSTIC 1 EACH STRIP VI SCH ×4 (06:18→20:40)
--- NOTE | 2020-08-19 06:25 | NUR ---
PATIENT ASLEEP IN BED. SLEPT WELL THROUGHOUT THE NIGHT. ALL NEEDS ATTENDED. WILL CONTINUE TO MONITOR AND ASSESS.
[2020-08-19 07:19] LABS: POTASSIUM 5.4 mmol/L (3.5-5.1)
[2020-08-19 07:30] VITALS: BP 121/56
[2020-08-19] MEDS: ASCORBIC ACID 500 MG TABLET PO SCH (08:26)
[2020-08-19] MEDS: LISINOPRIL 20 MG TABLET PO SCH (08:26)
[2020-08-19] MEDS: NICOTINE 14 MG/24HR PATCH TD SCH (08:27)
[2020-08-19] MEDS: ASPIRIN 81 MG TAB.CHEW PO SCH (08:27)
[2020-08-19] MEDS: INSULIN REGULAR, HUMAN 300 UNIT/3 ML VIAL SQ PRN ×3 (12:57→20:42)
[2020-08-19] MEDS: ESCITALOPRAM OXALATE 10 MG TABLET PO SCH (13:00)
[2020-08-19 16:08] VITALS: BP 110/46
--- NOTE | 2020-08-19 18:37 | NUR ---
received patient AOx1, calm cooperative, compliant with medication, on [id number] for safety, patient on heplock on his L arm, status post IV fluid hydration, called and spoke with MD with NNO for another bag of IV, remove the heplock, patient tolerated the procedure, patient seen walking around the hallway and joined the group activity, needed constant redirection especially patient is confused and easily persuade by other patient, no sign of any distress at this time will continue monitor
[2020-08-19 20:16] VITALS: BP 159/74
[2020-08-19] MEDS: MELATONIN 3 MG TABLET PO SCH (20:40)
[2020-08-19] MEDS: INSULIN GLARGINE,HUM 300 UNITS/3 ML CARTRIDGE SQ SCH (20:41)
[2020-08-19] MEDS ORDERED: LISINOPRIL 20 MG TABLET PO SCH (21:00)
[2020-08-20] MEDS: BLOOD SUGAR DIAGNOSTIC 1 EACH STRIP VI SCH ×4 (05:54→20:15)
--- NOTE | 2020-08-20 05:56 | NUR ---
GPS: Remain calm and cooperative with meds and care. no c/o pain or discomfort at this time. blood sugar 154mg/dl. assisted with adl's. slept 5.15 hrs through the night. resting in bed comfortably. continue plan of care.
[2020-08-20] MEDS: ASCORBIC ACID 500 MG TABLET PO SCH (08:10)
[2020-08-20] MEDS: ASPIRIN 81 MG TAB.CHEW PO SCH (08:10)
[2020-08-20] MEDS: INSULIN REGULAR, HUMAN 300 UNIT/3 ML VIAL SQ PRN ×4 (08:11→20:20)
[2020-08-20] MEDS: NICOTINE 14 MG/24HR PATCH TD SCH (08:15)
[2020-08-20 08:30] VITALS: BP 119/72
[2020-08-20 09:38] LABS: CREATININE 1.1 mg/dL (0.6-1.3); POTASSIUM 4.8 mmol/L (3.5-5.1)
[2020-08-20] MEDS ORDERED: SODIUM POLYSTYRENE SULFONATE 15 G/60 ML LIQUID UDC PO ONE (10:00)
[2020-08-20] MEDS: ESCITALOPRAM OXALATE 10 MG TABLET PO SCH (12:11)
--- NOTE | 2020-08-20 15:51 | NUR ---
patient was seen inside the room of another patient, patient was redirected to go back to his room, and room change was done, patient was educated that his not allow to go inside another patients room specially if its a female patient, patient was agreeable and express understanding , patient seen walking in the hallway and seen talking to the same patient in the hallway
[2020-08-20 15:57] VITALS: BP 145/76
--- NOTE | 2020-08-20 17:30 | NUR ---
patient needed redirection, seen close with another patient in the hallway, patient verbalizes that his just trying to help the other patient , patient has been seen in the room of this patient (2x) and was redirected all the time, no sign of any distress
[2020-08-20] MEDS: INSULIN GLARGINE,HUM 300 UNITS/3 ML CARTRIDGE SQ SCH (20:18)
[2020-08-20] MEDS: MELATONIN 3 MG TABLET PO SCH (20:25)
[2020-08-20 20:37] VITALS: BP 143/64
--- NOTE | 2020-08-21 05:41 | NUR ---
GPS: Remain calm and cooperative with meds and care. no c/o pain or discomfort at this time. patient assisted with adl's. no behavior issue noted. resting in bed comfortably. continue plan of care.
--- NOTE | 2020-08-21 05:49 | NUR ---
slept 8 hrs through the night.
[2020-08-21] MEDS: BLOOD SUGAR DIAGNOSTIC 1 EACH STRIP VI SCH ×4 (06:14→20:03)
[2020-08-21 07:08] LABS: CREATININE 1.1 mg/dL (0.6-1.3); POTASSIUM 4.9 mmol/L (3.5-5.1)
[2020-08-21 08:00] VITALS: BP 126/58
[2020-08-21] MEDS: NICOTINE 14 MG/24HR PATCH TD SCH (08:29)
[2020-08-21] MEDS: ASCORBIC ACID 500 MG TABLET PO SCH (08:29)
[2020-08-21] MEDS: ASPIRIN 81 MG TAB.CHEW PO SCH (08:29)
[2020-08-21] MEDS: INSULIN REGULAR, HUMAN 300 UNIT/3 ML VIAL SQ PRN ×3 (11:38→20:07)
[2020-08-21] MEDS: ESCITALOPRAM OXALATE 10 MG TABLET PO SCH (12:18)
[2020-08-21 16:00] VITALS: BP 146/71
[2020-08-21 20:00] VITALS: BP 118/62
[2020-08-21] MEDS: INSULIN GLARGINE,HUM 300 UNITS/3 ML CARTRIDGE SQ SCH (20:05)
[2020-08-21] MEDS: MELATONIN 3 MG TABLET PO SCH (20:08)
--- NOTE | 2020-08-22 06:39 | NUR ---
Patient was calm and cooperative during the shift. Oracle Manufacturing Consultant noticed that this patient becomes a bit more confused as the night progresses. Total sleep hours were 8.15. No distress, aggression or behavior escalation during the night. Continuing to monitor for safety.
[2020-08-22] MEDS: BLOOD SUGAR DIAGNOSTIC 1 EACH STRIP VI SCH ×4 (06:48→20:23)
[2020-08-22 07:30] VITALS: BP 116/69
[2020-08-22] MEDS: NICOTINE 14 MG/24HR PATCH TD SCH (08:42)
[2020-08-22] MEDS: ASCORBIC ACID 500 MG TABLET PO SCH (08:42)
[2020-08-22] MEDS: ASPIRIN 81 MG TAB.CHEW PO SCH (08:42)
[2020-08-22] MEDS: INSULIN REGULAR, HUMAN 300 UNIT/3 ML VIAL SQ PRN ×4 (08:44→20:20)
[2020-08-22] MEDS: ESCITALOPRAM OXALATE 10 MG TABLET PO SCH (12:14)
--- NOTE | 2020-08-22 14:42 | NUR ---
SNF Contact: This SW spoke with Admin Luanne ([phone]) and faxed patient's clinicals for review.
[2020-08-22 16:00] VITALS: BP 108/57
--- NOTE | 2020-08-22 16:11 | NUR ---
Individual Therapy: attraction worker met with patient for brief counseling and assessed for patient's presenting problem disorganized thought content. Patient appeared confused and disorganized. When attempted to conduct therapy patient just nods his head and says "Yeah". Patient unable to have proper therapy at this time due to confusion.
[2020-08-22 20:00] VITALS: BP 132/63
[2020-08-22] MEDS: MELATONIN 3 MG TABLET PO SCH (20:09)
[2020-08-22] MEDS: INSULIN GLARGINE,HUM 300 UNITS/3 ML CARTRIDGE SQ SCH (20:17)
[2020-08-23] MEDS: BLOOD SUGAR DIAGNOSTIC 1 EACH STRIP VI SCH ×4 (06:08→20:13)
[2020-08-23 07:30] VITALS: BP 120/53
[2020-08-23] MEDS: NICOTINE 14 MG/24HR PATCH TD SCH (08:24)
[2020-08-23] MEDS: ASPIRIN 81 MG TAB.CHEW PO SCH (08:24)
[2020-08-23] MEDS: ASCORBIC ACID 500 MG TABLET PO SCH (08:24)
[2020-08-23] MEDS: INSULIN REGULAR, HUMAN 300 UNIT/3 ML VIAL SQ PRN ×4 (08:25→20:14)
--- NOTE | 2020-08-23 09:51 | NUR ---
SW Family Contact: This SW contacted patient's daughter Nova ([phone]) and left a voicemail that patient will be discharged back to [facility] on 08/24.
[2020-08-23] MEDS: ESCITALOPRAM OXALATE 10 MG TABLET PO SCH (12:10)
[2020-08-23 16:00] VITALS: BP 108/53
[2020-08-23 20:00] VITALS: BP 138/66
[2020-08-23] MEDS: MELATONIN 3 MG TABLET PO SCH (20:08)
[2020-08-23] MEDS: INSULIN GLARGINE,HUM 300 UNITS/3 ML CARTRIDGE SQ SCH (20:16)
[2020-08-24] MEDS: BLOOD SUGAR DIAGNOSTIC 1 EACH STRIP VI SCH ×2 (06:19→12:11)
--- NOTE | 2020-08-24 06:40 | NUR ---
GPS: Pt.slept for 8 hrs.last night. B.S.at this time is 199mg/dl. Safe environment provided. No new behavioral problems exhibited.
[2020-08-24 07:30] VITALS: BP 129/78
--- NOTE | 2020-08-24 08:03 | NUR ---
SW Initial Discharge Plan: Patient will be discharged to [facility], [facility] ([phone]). Patient pickle maker is arranged by the facilitys transportation for today at 12PM. Patients daughter Nova ([phone]) is aware and agreeable with discharge. Belt And Link Shop Supervisor spoke with Luanne ([phone]), director of casino marketing, who stated patient can return to facility today. Patient is alert and oriented x2 and is not able to plan for self-care at this time but is willing to accept care provided for her at the facility. Patient denies any suicidal or homicidal ideation. Patient is aware and agreeable with discharge plans. Patient will follow up with Dr. Huff (Personnel Supervisor) and Dr. Alexander (Psychiatrist) at [facility]. Patient presents with euthymic mood and congruent affect
[2020-08-24] MEDS: NICOTINE 14 MG/24HR PATCH TD SCH (09:15)
[2020-08-24] MEDS: ASPIRIN 81 MG TAB.CHEW PO SCH (09:15)
[2020-08-24] MEDS: ASCORBIC ACID 500 MG TABLET PO SCH (09:15)
[2020-08-24] MEDS: INSULIN REGULAR, HUMAN 300 UNIT/3 ML VIAL SQ PRN ×2 (09:53→12:22)
[2020-08-24] MEDS: ESCITALOPRAM OXALATE 10 MG TABLET PO SCH (12:11)
--- NOTE | 2020-08-24 13:15 | NUR ---
Pt is being discharged to [facility] and being picked up by electric pile driver operator from the facility. Pt is aware and willing to go. Pt is calm, no agitation, denies s.i. Pt denies distress. Pt's hold is discontinued. All belongings returned and paperwork signed. Report was called and given to BENJY Renteria.
== END 2020-08-24 12:20 | DRG 885 ==
LOC: ER 13:33 → GPS 17:08
PROVIDERS: ADMIT Psychiatry & Neurology Psychosomatic Medicine; ATTEND Internal Medicine
DX: F33.2 Major depressive disorder, recurrent severe without psychotic features (principal); N17.0 Acute kidney failure with tubular necrosis; E11.65 Type 2 diabetes mellitus with hyperglycemia; E87.1 Hypo-osmolality and hyponatremia; D68.69 Other thrombophilia; E11.42 Type 2 diabetes mellitus with diabetic polyneuropathy; E87.5 Hyperkalemia; E86.1 Hypovolemia; E78.5 Hyperlipidemia, unspecified; F03.90 Unspecified dementia, unspecified severity, without behavioral disturbance, psychotic disturbance, mood disturbance, and anxiety; G93.89 Other specified disorders of brain; M19.90 Unspecified osteoarthritis, unspecified site; Z20.822 Contact with and (suspected) exposure to COVID-19; I10 Essential (primary) hypertension; F39 Unspecified mood [affective] disorder; Z79.4 Long term (current) use of insulin; Z87.820 Personal history of traumatic brain injury
CPT/HCPCS: 36415; 71045; 83735; 83935; 84100; 84300; 84443; 84550; 85025; A4663; G0480; J1815; J7030

== ENCOUNTER 2022-08-23 16:54 | Inpatient (IN) | payer MEDICARE, OTHER ==
[~2022-08-23] VITALS: Ht 165.1 cm; Wt 74.4 kg
[~2022-08-23 16:54] MED LIST: ASCO-375 PO; ASPI81TA31 PO; ATOR10TA PO; INSU100I26 SQ; INSU100V28; LISI20TA30 PO; MELA3TAB41 PO; MV-M1TAB18 PO
[2022-08-23 17:15] LABS: HEMATOCRIT 47.5 % (36.7-47.1); MEAN CORPUSCULAR VOLUME 83.2 fL (73.0-96.2); PLATELET COUNT (AUTO) 204 K/uL (152-348)
[2022-08-23] MEDS ORDERED: INSU100I19 SQ (17:16)
[2022-08-23] MEDS ORDERED: ACET325C7 PO (17:16)
[2022-08-23] MEDS ORDERED: LISI-782 PO (17:16)
[2022-08-23] MEDS ORDERED: ESCI10TA PO (17:16)
[2022-08-23 17:31] LABS: ETHANOL < 3 MG/DL (0-0)
[2022-08-23 17:32] LABS: CARBON DIOXIDE 25 mmol/L (21-32); CHLORIDE 97 mmol/L (98-107); CREATININE 1.5 mg/dL (0.6-1.3); POTASSIUM 4.6 mmol/L (3.5-5.1); UREA NITROGEN, BLOOD 23 mg/dL (7-18)
[2022-08-23 17:33] LABS: *BILIRUBIN,URIN NEGATIVE (NEGATIVE); *CLARITY,URINE CLEAR (CLEAR); *COLOR,URINE YELLOW (YELLOW); *KETONES,URINE NEGATIVE (NEGATIVE); *UROBILINOGEN,URINE 0.2 E.U./dl (NORMAL); LEUKOCYTE ESTERASE ,URINE NEGATIVE (NEGATIVE); NITRITE, URINE NEGATIVE (NEGATIVE); UGLUCOSE 2+ (NEGATIVE)
[2022-08-23 17:33] LABS: GLUCOSE 311 mg/dL (74-106)
[2022-08-23 17:34] LABS: *BLOOD, URINE TRACE (NEGATIVE)
[2022-08-23 17:37] LABS: ACETAMINOPHEN < 2.0 ug/mL (10-30); ALANINE AMINOTRANSFERASE 29 U/L (16-63); ALKALINE PHOSPHATASE 114 U/L (50-136); ASPARTATE AMINOTRANSFERASE 12 U/L (15-37); BILIRUBIN,DIRECT 0.1 mg/dL (0.0-0.2); BILIRUBIN,TOTAL 0.3 mg/dL (0.2-1.0); TOTAL PROTEIN, SERUM 7.5 g/dL (6.4-8.2)
[2022-08-23 17:40] LABS: *AMPHETAMINE, URINE NEGATIVE (NEGATIVE); *CANNABINOID, URINE NEGATIVE (NEGATIVE); *COCCAINE, URINE NEGATIVE (NEGATIVE); *PHENCYCLIDINE SCREEN,URINE NEGATIVE (NEGATIVE)
[2022-08-23] MEDS ORDERED: INSULIN REGULAR, HUMAN 300 UNIT/3 ML VIAL SQ ONE (17:45)
[2022-08-23] MEDS ORDERED: INSULIN REGULAR, HUMAN 300 UNIT/3 ML VIAL ONE (17:56)
[2022-08-23 21:06] LABS: BACTERIA,URINE NONE SEEN /HPF (NONE SEEN); SQUAMOUS EPITHELIAL CELL,UR FEW /HPF (NONE SEEN); WBC,URINE 0-3 /HPF (0-3)
[2022-08-23] MEDS ORDERED: BLOOD SUGAR DIAGNOSTIC 1 EACH STRIP VI ONE (23:00)
[2022-08-23] MEDS ORDERED: MAG HYDROX/AL HYDROX/SIMETH 30 ML LIQUID UDC PO PRN (23:00)
[2022-08-23] MEDS ORDERED: MAGNESIUM HYDROXIDE 30 ML LIQUID UDC PO PRN (23:00)
[2022-08-23] MEDS: ACETAMINOPHEN 325 MG TABLET PO PRN (23:24)
[2022-08-23] MEDS: ZOLPIDEM 5 MG TABLET PO PRN (23:24)
[2022-08-23 23:55] VITALS: BP 139/77
[2022-08-24 08:39] VITALS: BP 147/74
[2022-08-24] MEDS ORDERED: ESCITALOPRAM OXALATE 10 MG TABLET PO SCH (09:00)
[2022-08-24] MEDS ORDERED: DEXTROSE 50% 50 ML DISP.SYRIN IV PRN (10:00)
[2022-08-24] MEDS ORDERED: ACETAMINOPHEN 325 MG TABLET PO SCH (10:00)
[2022-08-24] MEDS: BLOOD SUGAR DIAGNOSTIC 1 EACH STRIP VI SCH ×3 (11:48→20:29)
[2022-08-24] MEDS: INSULIN REGULAR, HUMAN 300 UNIT/3 ML VIAL SQ PRN ×3 (11:51→20:33)
[2022-08-24] MEDS: ACETAMINOPHEN 325 MG TABLET PO PRN (12:40)
[2022-08-24] MEDS ORDERED: CHOL200059 PO (15:04)
[2022-08-24 16:03] VITALS: BP 138/73
[2022-08-24] MEDS: CHOLECALCIFEROL 1,000 UNIT TABLET PO SCH (16:18)
[2022-08-24 20:07] VITALS: BP 152/82
[2022-08-24] MEDS: QUETIAPINE FUMARATE 25 MG TABLET PO SCH (20:31)
[2022-08-24] MEDS: INSULIN GLARGINE,HUM 300 UNITS/3 ML CARTRIDGE SQ SCH (20:31)
[2022-08-24] MEDS ORDERED: INSULIN DETEMIR 300 UNIT/3 ML CARTRIDGE SQ SCH (21:00)
[2022-08-25] MEDS: BLOOD SUGAR DIAGNOSTIC 1 EACH STRIP VI SCH ×4 (06:00→20:35)
[2022-08-25] MEDS: INSULIN REGULAR, HUMAN 300 UNIT/3 ML VIAL SQ PRN ×2 (08:08→11:41)
[2022-08-25 08:12] VITALS: BP 138/71
[2022-08-25] MEDS: CHOLECALCIFEROL 1,000 UNIT TABLET PO SCH (08:13)
[2022-08-25] MEDS: ASPIRIN 81 MG TAB.CHEW PO SCH (09:38)
[2022-08-25] MEDS: LISINOPRIL 5 MG TABLET PO SCH (09:39)
[2022-08-25] MEDS ORDERED: DEXTROSE 50% 50 ML DISP.SYRIN IV PRN (14:30)
[2022-08-25] MEDS: INSULIN REGULAR, HUMAN 300 UNITS/3 ML VIAL SQ PRN ×2 (16:16→20:37)
[2022-08-25 17:20] VITALS: BP 151/87
[2022-08-25 20:00] VITALS: BP 138/76
[2022-08-25] MEDS: QUETIAPINE FUMARATE 25 MG TABLET PO SCH (20:36)
[2022-08-25] MEDS: INSULIN GLARGINE,HUM 300 UNITS/3 ML CARTRIDGE SQ SCH (20:36)
[2022-08-26] MEDS: BLOOD SUGAR DIAGNOSTIC 1 EACH STRIP VI SCH ×4 (06:24→20:36)
[2022-08-26 06:40] LABS: HEMATOCRIT 48.2 % (36.7-47.1); MEAN CORPUSCULAR HEMOGLOBIN 27.6 uug (23.8-33.4); MEAN CORPUSCULAR VOLUME 84.4 fL (73.0-96.2); PLATELET COUNT (AUTO) 193 K/uL (152-348)
[2022-08-26 06:55] LABS: BILIRUBIN,TOTAL 0.4 mg/dL (0.2-1.0); CREATININE 1.1 mg/dL (0.6-1.3); POTASSIUM 4.5 mmol/L (3.5-5.1)
[2022-08-26 08:05] VITALS: BP 162/83
[2022-08-26] MEDS: INSULIN REGULAR, HUMAN 300 UNIT/3 ML VIAL SQ PRN ×3 (08:12→16:35)
[2022-08-26] MEDS: LISINOPRIL 5 MG TABLET PO SCH (08:13)
[2022-08-26] MEDS: ASPIRIN 81 MG TAB.CHEW PO SCH (08:13)
[2022-08-26] MEDS: CHOLECALCIFEROL 1,000 UNIT TABLET PO SCH (08:14)
[2022-08-26] MEDS: ACETAMINOPHEN 325 MG TABLET PO PRN ×2 (10:40→21:19)
[2022-08-26 16:12] VITALS: BP 130/56
[2022-08-26 20:17] VITALS: BP 134/86
[2022-08-26] MEDS: QUETIAPINE FUMARATE 25 MG TABLET PO SCH (20:34)
[2022-08-26] MEDS: INSULIN GLARGINE,HUM 300 UNITS/3 ML CARTRIDGE SQ SCH (20:36)
[2022-08-26] MEDS: INSULIN REGULAR, HUMAN 300 UNITS/3 ML VIAL SQ PRN (20:39)
[2022-08-26] MEDS: LORAZEPAM 0.5 MG TABLET PO PRN (21:19)
[2022-08-27] MEDS: BLOOD SUGAR DIAGNOSTIC 1 EACH STRIP VI SCH ×4 (06:34→20:32)
[2022-08-27 07:51] VITALS: BP 106/58
[2022-08-27] MEDS: INSULIN REGULAR, HUMAN 300 UNIT/3 ML VIAL SQ PRN ×3 (09:38→16:48)
[2022-08-27] MEDS: LISINOPRIL 5 MG TABLET PO SCH (10:05)
[2022-08-27] MEDS: ASPIRIN 81 MG TAB.CHEW PO SCH (10:05)
[2022-08-27] MEDS: CHOLECALCIFEROL 1,000 UNIT TABLET PO SCH (10:05)
[2022-08-27 16:33] VITALS: BP 151/74
[2022-08-27] MEDS: NUTRISOURCE FIBER 4 GM PACKET PO SCH (16:46)
[2022-08-27] MEDS: QUETIAPINE FUMARATE 25 MG TABLET PO SCH (20:27)
[2022-08-27] MEDS: INSULIN REGULAR, HUMAN 300 UNITS/3 ML VIAL SQ PRN (20:35)
[2022-08-27] MEDS: INSULIN GLARGINE,HUM 300 UNITS/3 ML CARTRIDGE SQ SCH (20:36)
[2022-08-28] MEDS: BLOOD SUGAR DIAGNOSTIC 1 EACH STRIP VI SCH ×4 (06:39→21:46)
[2022-08-28 07:30] VITALS: BP 136/66
[2022-08-28] MEDS: CHOLECALCIFEROL 1,000 UNIT TABLET PO SCH (08:16)
[2022-08-28] MEDS: ASPIRIN 81 MG TAB.CHEW PO SCH (08:16)
[2022-08-28] MEDS: NUTRISOURCE FIBER 4 GM PACKET PO SCH ×3 (08:17→16:32)
[2022-08-28] MEDS: LISINOPRIL 5 MG TABLET PO SCH (08:17)
[2022-08-28] MEDS: INSULIN REGULAR, HUMAN 300 UNIT/3 ML VIAL SQ PRN ×3 (08:35→16:31)
[2022-08-28 10:24] VITALS: BP 138/66
[2022-08-28 15:28] VITALS: BP 119/49
[2022-08-28 20:00] VITALS: BP 137/66
[2022-08-28] MEDS ORDERED: INSULIN GLARGINE,HUM 300 UNITS/3 ML CARTRIDGE SQ SCH (21:00)
[2022-08-28] MEDS: QUETIAPINE FUMARATE 25 MG TABLET PO SCH (21:39)
[2022-08-28] MEDS: INSULIN REGULAR, HUMAN 300 UNITS/3 ML VIAL SQ PRN (21:47)
[2022-08-28] MEDS: INSULIN GLARGINE,HUM 300 UNITS/3 ML CARTRIDGE SQ SCH (21:52)
[2022-08-29] MEDS: BLOOD SUGAR DIAGNOSTIC 1 EACH STRIP VI SCH ×4 (07:00→20:15)
[2022-08-29 07:30] VITALS: BP 111/67
[2022-08-29] MEDS: CHOLECALCIFEROL 1,000 UNIT TABLET PO SCH (09:24)
[2022-08-29] MEDS: ASPIRIN 81 MG TAB.CHEW PO SCH (09:25)
[2022-08-29] MEDS: NUTRISOURCE FIBER 4 GM PACKET PO SCH ×3 (09:26→17:27)
[2022-08-29] MEDS: LISINOPRIL 5 MG TABLET PO SCH (09:26)
[2022-08-29] MEDS: INSULIN REGULAR, HUMAN 300 UNIT/3 ML VIAL SQ PRN ×3 (09:35→17:30)
[2022-08-29 15:20] VITALS: BP 121/64
[2022-08-29 20:02] VITALS: BP 112/60
[2022-08-29] MEDS: QUETIAPINE FUMARATE 25 MG TABLET PO SCH (20:15)
[2022-08-29] MEDS: INSULIN GLARGINE,HUM 300 UNITS/3 ML CARTRIDGE SQ SCH (20:26)
[2022-08-29] MEDS: INSULIN REGULAR, HUMAN 300 UNITS/3 ML VIAL SQ PRN (20:27)
[2022-08-30] MEDS: BLOOD SUGAR DIAGNOSTIC 1 EACH STRIP VI SCH ×4 (06:33→20:26)
[2022-08-30 07:30] VITALS: BP 113/56
[2022-08-30] MEDS: CHOLECALCIFEROL 1,000 UNIT TABLET PO SCH (09:10)
[2022-08-30] MEDS: ASPIRIN 81 MG TAB.CHEW PO SCH (09:11)
[2022-08-30] MEDS: LISINOPRIL 5 MG TABLET PO SCH (09:12)
[2022-08-30] MEDS: NUTRISOURCE FIBER 4 GM PACKET PO SCH ×3 (09:12→17:24)
[2022-08-30] MEDS: INSULIN REGULAR, HUMAN 300 UNIT/3 ML VIAL SQ PRN ×3 (09:15→17:41)
[2022-08-30 15:22] VITALS: BP 166/75
[2022-08-30 17:50] VITALS: BP 114/63
[2022-08-30 19:57] VITALS: BP 163/66
[2022-08-30] MEDS: QUETIAPINE FUMARATE 25 MG TABLET PO SCH (20:25)
[2022-08-30] MEDS: LORAZEPAM 0.5 MG TABLET PO PRN (20:25)
[2022-08-30] MEDS: INSULIN GLARGINE,HUM 300 UNITS/3 ML CARTRIDGE SQ SCH (20:27)
[2022-08-30] MEDS: INSULIN REGULAR, HUMAN 300 UNITS/3 ML VIAL SQ PRN (20:31)
[2022-08-31] MEDS: BLOOD SUGAR DIAGNOSTIC 1 EACH STRIP VI SCH ×4 (06:10→20:18)
[2022-08-31 08:00] VITALS: BP 130/69
[2022-08-31] MEDS: ASPIRIN 81 MG TAB.CHEW PO SCH (08:40)
[2022-08-31] MEDS: CHOLECALCIFEROL 1,000 UNIT TABLET PO SCH (08:40)
[2022-08-31] MEDS: NUTRISOURCE FIBER 4 GM PACKET PO SCH ×3 (08:41→17:45)
[2022-08-31] MEDS: LISINOPRIL 5 MG TABLET PO SCH (08:41)
[2022-08-31] MEDS: INSULIN REGULAR, HUMAN 300 UNIT/3 ML VIAL SQ PRN ×3 (08:44→17:48)
[2022-08-31] MEDS: INSULIN GLARGINE,HUM 300 UNITS/3 ML CARTRIDGE SQ SCH ×2 (09:25→20:19)
[2022-08-31 16:00] VITALS: BP 146/73
[2022-08-31] MEDS: ACETAMINOPHEN 325 MG TABLET PO PRN (20:18)
[2022-08-31] MEDS: LORAZEPAM 0.5 MG TABLET PO PRN (20:18)
[2022-08-31] MEDS: QUETIAPINE FUMARATE 100 MG TABLET PO SCH (20:19)
[2022-08-31] MEDS: INSULIN REGULAR, HUMAN 300 UNITS/3 ML VIAL SQ PRN (20:20)
[2022-08-31 21:04] VITALS: BP 167/87
[2022-08-31] MEDS: ZOLPIDEM 5 MG TABLET PO PRN (23:43)
[2022-09-01] MEDS: BLOOD SUGAR DIAGNOSTIC 1 EACH STRIP VI SCH ×4 (06:38→20:25)
[2022-09-01 07:39] VITALS: BP 173/89
[2022-09-01] MEDS: CHOLECALCIFEROL 1,000 UNIT TABLET PO SCH (08:19)
[2022-09-01] MEDS: ASPIRIN 81 MG TAB.CHEW PO SCH (08:19)
[2022-09-01] MEDS: NUTRISOURCE FIBER 4 GM PACKET PO SCH ×3 (08:21→16:52)
[2022-09-01] MEDS: LISINOPRIL 5 MG TABLET PO SCH (08:21)
[2022-09-01] MEDS: INSULIN GLARGINE,HUM 300 UNITS/3 ML CARTRIDGE SQ SCH ×2 (08:23→20:28)
[2022-09-01] MEDS: INSULIN REGULAR, HUMAN 300 UNIT/3 ML VIAL SQ PRN ×3 (08:24→16:55)
[2022-09-01 16:12] VITALS: BP 91/48
[2022-09-01 20:00] VITALS: BP 138/70
[2022-09-01] MEDS: QUETIAPINE FUMARATE 100 MG TABLET PO SCH (20:29)
[2022-09-01] MEDS: INSULIN REGULAR, HUMAN 300 UNITS/3 ML VIAL SQ PRN (20:31)
[2022-09-01] MEDS: ZOLPIDEM 5 MG TABLET PO PRN (22:49)
[2022-09-02] MEDS: BLOOD SUGAR DIAGNOSTIC 1 EACH STRIP VI SCH ×4 (06:39→22:01)
[2022-09-02 07:47] VITALS: BP 150/83
[2022-09-02] MEDS: LISINOPRIL 5 MG TABLET PO SCH (08:25)
[2022-09-02] MEDS: CHOLECALCIFEROL 1,000 UNIT TABLET PO SCH (08:25)
[2022-09-02] MEDS: ASPIRIN 81 MG TAB.CHEW PO SCH (08:25)
[2022-09-02] MEDS: NUTRISOURCE FIBER 4 GM PACKET PO SCH ×3 (08:26→16:51)
[2022-09-02] MEDS: INSULIN GLARGINE,HUM 300 UNITS/3 ML CARTRIDGE SQ SCH ×2 (08:30→21:00)
[2022-09-02] MEDS: INSULIN REGULAR, HUMAN 300 UNIT/3 ML VIAL SQ PRN ×3 (08:31→16:52)
[2022-09-02 16:18] VITALS: BP 133/69
[2022-09-02 20:01] VITALS: BP 146/76
[2022-09-02] MEDS: QUETIAPINE FUMARATE 100 MG TABLET PO SCH (21:56)
[2022-09-02] MEDS: LORAZEPAM 0.5 MG TABLET PO PRN (22:01)
[2022-09-02] MEDS: INSULIN REGULAR, HUMAN 300 UNITS/3 ML VIAL SQ PRN (22:10)
[2022-09-03] MEDS: BLOOD SUGAR DIAGNOSTIC 1 EACH STRIP VI SCH ×4 (07:04→20:00)
[2022-09-03] MEDS: CHOLECALCIFEROL 1,000 UNIT TABLET PO SCH (08:14)
[2022-09-03] MEDS: ASPIRIN 81 MG TAB.CHEW PO SCH (08:14)
[2022-09-03] MEDS: LISINOPRIL 5 MG TABLET PO SCH (08:17)
[2022-09-03] MEDS: NUTRISOURCE FIBER 4 GM PACKET PO SCH ×3 (08:18→16:37)
[2022-09-03 08:20] VITALS: BP 176/76
[2022-09-03] MEDS: INSULIN REGULAR, HUMAN 300 UNIT/3 ML VIAL SQ PRN ×3 (08:20→16:30)
[2022-09-03] MEDS: INSULIN GLARGINE,HUM 300 UNITS/3 ML CARTRIDGE SQ SCH ×2 (09:26→20:19)
[2022-09-03 16:22] VITALS: BP 115/61
[2022-09-03] MEDS: LORAZEPAM 0.5 MG TABLET PO PRN (19:55)
[2022-09-03] MEDS: INSULIN REGULAR, HUMAN 300 UNITS/3 ML VIAL SQ PRN (20:21)
[2022-09-03 21:00] VITALS: BP 143/72
[2022-09-03] MEDS: QUETIAPINE FUMARATE 100 MG TABLET PO SCH (21:04)
[2022-09-04] MEDS: BLOOD SUGAR DIAGNOSTIC 1 EACH STRIP VI SCH ×2 (06:20→11:56)
[2022-09-04 08:10] VITALS: BP 150/74
[2022-09-04 08:35] VITALS: BP 150/74
[2022-09-04] MEDS: ASPIRIN 81 MG TAB.CHEW PO SCH (08:35)
[2022-09-04] MEDS: CHOLECALCIFEROL 1,000 UNIT TABLET PO SCH (08:35)
[2022-09-04] MEDS: LISINOPRIL 5 MG TABLET PO SCH (08:35)
[2022-09-04] MEDS: NUTRISOURCE FIBER 4 GM PACKET PO SCH ×2 (08:35→12:06)
[2022-09-04] MEDS: INSULIN GLARGINE,HUM 300 UNITS/3 ML CARTRIDGE SQ SCH (08:36)
[2022-09-04] MEDS: INSULIN REGULAR, HUMAN 300 UNIT/3 ML VIAL SQ PRN ×2 (08:37→11:58)
[2022-09-04] MEDS ORDERED: LOPERAMIDE HCL 2 MG CAPSULE PO PRN (10:15)
== END 2022-09-04 14:30 | DRG 885 ==
LOC: ER 16:54 → GPS 22:46
PROVIDERS: ADMIT Psychiatry & Neurology Psychiatry; ATTEND Registered Nurse
DX: F33.3 Major depressive disorder, recurrent, severe with psychotic symptoms (principal); N17.9 Acute kidney failure, unspecified; E11.65 Type 2 diabetes mellitus with hyperglycemia; F03.911 Unspecified dementia, unspecified severity, with agitation; E87.1 Hypo-osmolality and hyponatremia; J98.11 Atelectasis; E11.42 Type 2 diabetes mellitus with diabetic polyneuropathy; Z87.820 Personal history of traumatic brain injury; Z79.4 Long term (current) use of insulin; Z79.82 Long term (current) use of aspirin; E78.5 Hyperlipidemia, unspecified; E86.0 Dehydration; I11.9 Hypertensive heart disease without heart failure; M19.90 Unspecified osteoarthritis, unspecified site; Z79.899 Other long term (current) drug therapy; Z86.2 Personal history of diseases of the blood and blood-forming organs and certain disorders involving the immune mechanism; Z20.822 Contact with and (suspected) exposure to COVID-19
CPT/HCPCS: 36415; 71045; 85025; 93005; A4663; G0480; J1815

== ENCOUNTER 2024-07-30 18:21 | Inpatient (IN) | payer MEDICARE, OTHER ==
[~2024-07-30] VITALS: Ht 165.1 cm; Wt 71.7 kg
[~2024-07-30 18:21] MED LIST changes: +ACET325C7 PO; -ASCO-375 PO; -ATOR10TA PO; +CHOL200059 PO; +ESCI10TA PO; +INSU100I19 SQ; -INSU100I26 SQ; +LISI-782 PO; -LISI20TA30 PO; -MELA3TAB41 PO; -MV-M1TAB18 PO
[2024-07-30 19:13] LABS: BASOPHILS # (AUTO) 0.1 K/UL (0.0-0.2); BASOPHILS % (AUTO) 0.7 % (0.0-2.0); EOSINOPHILS # (AUTO) 0.7 K/uL (0.0-0.7); EOSINOPHILS % (AUTO) 5.6 % (0.0-7.0); HEMATOCRIT 49.7 % (36.7-47.1); HEMOGLOBIN 16.3 g/dL (12.5-16.3); LYMPHOCYTES # (AUTO) 1.8 K/uL (0.8-4.8); LYMPHOCYTES % (AUTO) 14.6 % (20.5-51.5); MEAN CORPUSCULAR HEMOGLOBIN 28.4 uug (23.8-33.4); MEAN CORPUSCULAR HGB CONC 33 g/dL (32.5-36.3); MEAN CORPUSCULAR VOLUME 86.5 fL (73.0-96.2); MONOCYTES # (AUTO) 0.7 K/uL (0.1-1.30); MONOCYTES % (AUTO) 5.5 % (0.0-11.0); NEUTROPHILS % (AUTO) 73.6 % (38.5-71.5); PLATELET COUNT (AUTO) 226 K/uL (152-348); RED BLOOD CELL COUNT(AUTO) 5.75 MIL/uL (4.06-5.63); RED CELL DISTRIBUTION WIDTH 13.9 % (12.1-16.2); WHITE BLOOD COUNT (AUTO) 12.3 K/uL (3.6-10.2)
[2024-07-30 19:17] LABS: DIFFERENTIAL COMMENT 1
[2024-07-30 19:21] LABS: CALCIUM 10.3 mg/dL (8.5-10.1); CARBON DIOXIDE 28 mmol/L (21-32); CHLORIDE 100 mmol/L (98-107); CREATININE 1.4 mg/dL (0.6-1.3); GLUCOSE 112 mg/dL (74-106); POTASSIUM 4.7 mmol/L (3.5-5.1); SODIUM SERUM 140 mmol/L (136-145); UREA NITROGEN, BLOOD 34 mg/dL (7-18)
[2024-07-30 19:28] LABS: ETHANOL < 3 MG/DL (0-10)
[2024-07-30 19:29] LABS: ACETAMINOPHEN < 2.0 ug/mL (10-30); ALANINE AMINOTRANSFERASE 24 U/L (16-63); ALBUMIN 3.5 g/dL (3.4-5.0); ALKALINE PHOSPHATASE 116 U/L (50-136); ASPARTATE AMINOTRANSFERASE 19 U/L (15-37); BILIRUBIN,DIRECT 0.1 mg/dL (0.0-0.2); BILIRUBIN,TOTAL 0.3 mg/dL (0.2-1.0); TOTAL PROTEIN, SERUM 8.3 g/dL (6.4-8.2)
[2024-07-30 19:59] LABS: *BILIRUBIN,URIN NEGATIVE (NEGATIVE); *BLOOD, URINE NEGATIVE (NEGATIVE); *CLARITY,URINE CLEAR (CLEAR); *COLOR,URINE YELLOW (YELLOW); *KETONES,URINE TRACE (NEGATIVE); *PROTEIN,URINE 3+ (NEGATIVE); *UROBILINOGEN,URINE 0.2 E.U./dl (NORMAL); LEUKOCYTE ESTERASE ,URINE NEGATIVE (NEGATIVE); NITRITE, URINE NEGATIVE (NEGATIVE); PH,URINE 5.5 (5.0-8.0); UGLUCOSE NEGATIVE (NEGATIVE)
[2024-07-30 20:10] LABS: *AMPHETAMINE, URINE NEGATIVE (NEGATIVE); *BARBITURATE, URINE NEGATIVE (NEGATIVE); *BENZODIAZEPINE, URINE NEGATIVE (NEGATIVE); *CANNABINOID, URINE NEGATIVE (NEGATIVE); *COCCAINE, URINE NEGATIVE (NEGATIVE); *OPIATE, URINE NEGATIVE (NEGATIVE); *PHENCYCLIDINE SCREEN,URINE NEGATIVE (NEGATIVE); FENTANYL, URINE NEGATIVE (NEGATIVE)
[2024-07-30 20:13] LABS: BACTERIA,URINE NONE SEEN /HPF (NONE SEEN); RBC,URINE 0-3 /HPF (0-3); WBC,URINE 0-3 /HPF (0-3)
[2024-07-30 20:14] LABS: CALCIUM OXALATE CRYSTALS,UR FEW /HPF (NONE SEEN); SQUAMOUS EPITHELIAL CELL,UR FEW /HPF (NONE SEEN)
[2024-07-30] MEDS ORDERED: ATOR10TA PO (23:16)
[2024-07-30] MEDS ORDERED: MELA1TAB27 PO (23:16)
[2024-07-30] MEDS ORDERED: METF-495 PO (23:16)
[2024-07-30] MEDS ORDERED: LEVE750T4 PO (23:16)
[2024-07-30] MEDS ORDERED: POLY17PO4 PO (23:36)
[2024-07-30] MEDS ORDERED: LORA10TA64 PO (23:36)
[2024-07-30] MEDS ORDERED: SENN8.6T19 PO (23:36)
[2024-07-30] MEDS ORDERED: METO25TA6 PO (23:36)
[2024-07-31] VITALS: BP 145/66; TEMP 98.1; O2SAT 94
[2024-07-31] MEDS ORDERED: ZOLPIDEM 5 MG TABLET PO PRN
[2024-07-31] MEDS: BLOOD SUGAR DIAGNOSTIC 1 EACH STRIP VI ONE (00:42)
[2024-07-31 08:22] VITALS: BP 120/75; TEMP 97.8; O2SAT 99
[2024-07-31] MEDS ORDERED: METF-440 PO (09:32)
[2024-07-31] MEDS ORDERED: MAGN400O6 PO (09:32)
[2024-07-31] MEDS ORDERED: MAG355OR18 PO (09:32)
[2024-07-31] MEDS ORDERED: CHOL-35 PO (09:32)
[2024-07-31] MEDS ORDERED: INSU100V28 SQ (09:32)
[2024-07-31] MEDS ORDERED: BISA10SU61 RC (09:32)
[2024-07-31] MEDS ORDERED: INSU3INS6 SQ ×2 (09:32→09:50)
[2024-07-31] MEDS ORDERED: ALEN70TA3 PO (09:32)
[2024-07-31] MEDS ORDERED: AMIN30LI2 PO (09:32)
[2024-07-31] MEDS ORDERED: ASCO500C18 PO (09:32)
[2024-07-31] MEDS ORDERED: ACET-2154 PO (09:32)
[2024-07-31] MEDS ORDERED: NA P133E RC (09:32)
[2024-07-31] MEDS ORDERED: BISACODYL 10 MG SUPP.RECT RC PRN (12:15)
[2024-07-31] MEDS ORDERED: MAG HYDROX/AL HYDROX/SIMETH 30 ML LIQUID UDC PO PRN ×2 (12:15)
[2024-07-31] MEDS ORDERED: ACETAMINOPHEN 325 MG TABLET-SA PATIENTS-PAIN ONLY PO PRN (12:15)
[2024-07-31] MEDS ORDERED: FLEET ENEMA 133 ML BOTTLE RC PRN (12:15)
[2024-07-31] MEDS ORDERED: MAGNESIUM HYDROXIDE 30 ML LIQUID UDC PO PRN ×2 (12:15)
[2024-07-31] MEDS ORDERED: ACETAMINOPHEN 325 MG TABLET PO PRN (12:30)
[2024-07-31] MEDS: ASPIRIN 81 MG TAB.CHEW PO SCH (14:04)
[2024-07-31] MEDS: LISINOPRIL 5 MG TABLET PO SCH (14:05)
[2024-07-31 16:29] VITALS: BP 138/73; TEMP 98; O2SAT 97
[2024-07-31] MEDS: levETIRAcetam 500 MG TABLET PO SCH (16:38)
[2024-07-31] MEDS: METOPROLOL TARTRATE 25 MG TABLET PO SCH (16:39)
[2024-07-31] MEDS: VENLAFAXINE XR 37.5 MG CAP.SR.24H PO SCH (16:40)
[2024-07-31] MEDS: PROTEIN SUPPLEMENT (PROSTAT) 30 ML LIQUID PO SCH (17:00)
[2024-07-31] MEDS ORDERED: Medication Not On Formulary EA (Amino Acids/Protein Hydrolys (Pro-Stat Liquid) 30 ML) PO SCH (17:00)
[2024-07-31] MEDS ORDERED: Medication Not On Formulary EA (Levetiracetam (Keppra) 750 MG) PO SCH (17:00)
[2024-07-31] MEDS: METFORMIN HCL 500 MG TABLET PO SCH (17:51)
[2024-07-31 20:14] VITALS: BP 126/74; TEMP 97.9; O2SAT 96
[2024-07-31] MEDS: ACETAMINOPHEN 325 MG TABLET PO PRN (23:02)
[2024-07-31] MEDS: ATORVASTATIN 10 MG TABLET PO SCH (23:02)
[2024-07-31] MEDS: ZOLPIDEM 5 MG TABLET PO PRN (23:03)
[2024-08-01 08:28] VITALS: BP 141/67; TEMP 98.3; O2SAT 99
[2024-08-01] MEDS: CHOLECALCIFEROL 1,000 UNIT TABLET PO SCH (08:32)
[2024-08-01] MEDS: SENNOSIDES 1 TABLET PO SCH (08:33)
[2024-08-01] MEDS: LORATADINE 10 MG TAB.RAPDIS PO SCH (08:33)
[2024-08-01] MEDS: ASCORBIC ACID 500 MG TABLET PO SCH (08:33)
[2024-08-01] MEDS: MIRALAX 17 GM POWD.PACK PO SCH (08:34)
[2024-08-01] MEDS ORDERED: Medication Not On Formulary EA (Ascorbic Acid (Vitamin C) 500 MG) PO SCH (09:00)
[2024-08-01 16:35] VITALS: BP 149/58; TEMP 98.1; O2SAT 98
[2024-08-01 20:11] VITALS: BP 142/74; TEMP 98.1; O2SAT 98
[2024-08-02 07:46] VITALS: BP 91/44; TEMP 98; O2SAT 92
[2024-08-02 15:08] VITALS: BP 100/49; TEMP 98; O2SAT 96
[2024-08-02 20:05] VITALS: BP 145/66; TEMP 98; O2SAT 96
[2024-08-03 08:28] VITALS: BP 128/75; TEMP 98.7; O2SAT 97
[2024-08-03] MEDS: VENLAFAXINE XR 75 MG TAB.ER.24H PO SCH (09:08)
[2024-08-03 16:30] VITALS: BP 144/77; TEMP 98.5; O2SAT 99
[2024-08-03 20:00] VITALS: BP 123/55; TEMP 98.2; O2SAT 96
[2024-08-04 08:32] VITALS: BP 141/74; TEMP 98.6; O2SAT 98
[2024-08-04] MEDS: LAMOTRIGINE 25 MG TABLET PO SCH (12:10)
[2024-08-04 16:49] VITALS: BP 142/70; TEMP 98.5; O2SAT 100
[2024-08-04 19:55] VITALS: BP 145/71; TEMP 98.6; O2SAT 100
[2024-08-05 08:08] VITALS: BP 121/64; TEMP 98; O2SAT 99
[2024-08-05 15:29] VITALS: BP 90/48; TEMP 98; O2SAT 94
[2024-08-05 23:52] VITALS: BP 152/61; TEMP 98.1; O2SAT 95
[2024-08-06] MEDS: ALENDRONATE SODIUM 70 MG TABLET PO SCH (06:06)
[2024-08-06 07:37] LABS: BASOPHILS # (AUTO) 0.1 K/UL (0.0-0.2); EOSINOPHILS # (AUTO) 0.3 K/uL (0.0-0.7); EOSINOPHILS % (AUTO) 3.3 % (0.0-7.0); HEMATOCRIT 48.7 % (36.7-47.1); LYMPHOCYTES # (AUTO) 1.6 K/uL (0.8-4.8); LYMPHOCYTES % (AUTO) 16.7 % (20.5-51.5); MEAN CORPUSCULAR HEMOGLOBIN 28.3 uug (23.8-33.4); MEAN CORPUSCULAR HGB CONC 33 g/dL (32.5-36.3); MONOCYTES # (AUTO) 0.6 K/uL (0.1-1.30); MONOCYTES % (AUTO) 6.5 % (0.0-11.0); NEUTROPHILS # (AUTO) 6.9 K/uL (1.8-8.9); NEUTROPHILS % (AUTO) 72.5 % (38.5-71.5); PLATELET COUNT (AUTO) 201 K/uL (152-348); RED BLOOD CELL COUNT(AUTO) 5.66 MIL/uL (4.06-5.63); RED CELL DISTRIBUTION WIDTH 13.9 % (12.1-16.2); WHITE BLOOD COUNT (AUTO) 9.5 K/uL (3.6-10.2)
[2024-08-06 07:57] LABS: DIFFERENTIAL COMMENT 1
[2024-08-06 08:20] LABS: CALCIUM 8.9 mg/dL (8.5-10.1); CARBON DIOXIDE 27 mmol/L (21-32); CHLORIDE 102 mmol/L (98-107); CREATININE 1.3 mg/dL (0.6-1.3); GLUCOSE 137 mg/dL (74-106); PHOSPHOROUS 3.5 mg/dL (2.5-4.9); POTASSIUM 4.7 mmol/L (3.5-5.1); SODIUM SERUM 137 mmol/L (136-145); UREA NITROGEN, BLOOD 28 mg/dL (7-18)
[2024-08-06 08:52] VITALS: BP 138/59; TEMP 98; O2SAT 96
[2024-08-06] MEDS ORDERED: ALENDRONATE SODIUM 70 MG TABLET PO SCH (09:00)
[2024-08-06 09:39] LABS: THYROID STIMULATING HORMONE 0.868 mIU/mL (0.358-3.740)
[2024-08-06 15:55] VITALS: BP 121/53; TEMP 98; O2SAT 96
[2024-08-06 19:48] VITALS: BP 107/51; TEMP 97.9; O2SAT 93
[2024-08-07 08:28] VITALS: BP 158/81; TEMP 98.5; O2SAT 95
[2024-08-07] MEDS: LAMOTRIGINE 25 MG TABLET PO SCH (08:50)
[2024-08-07] MEDS: busPIRone 5 MG TABLET PO SCH (13:33)
[2024-08-07 16:52] VITALS: BP 123/70; TEMP 98.1; O2SAT 98
[2024-08-07 20:00] VITALS: BP 139/68; TEMP 98.3; O2SAT 96
[2024-08-08 07:51] VITALS: BP 138/61; TEMP 98; O2SAT 96
[2024-08-08 15:51] VITALS: BP 113/56; TEMP 98; O2SAT 98
[2024-08-08 20:00] VITALS: BP 103/52; TEMP 98.2; O2SAT 95
[2024-08-09 07:44] VITALS: BP 113/48; TEMP 97.2; O2SAT 97
[2024-08-09 16:00] VITALS: BP 150/76; TEMP 97.6; O2SAT 97
[2024-08-09 20:13] VITALS: BP 142/72; TEMP 97.2; O2SAT 98
[2024-08-10 07:37] VITALS: BP 141/73; TEMP 98; O2SAT 98
[2024-08-10 16:41] VITALS: BP 124/52; TEMP 98; O2SAT 96
[2024-08-10 20:00] VITALS: BP 139/65; TEMP 98.1; O2SAT 96
[2024-08-11 08:12] LABS: ALANINE AMINOTRANSFERASE 22 U/L (16-63); ALBUMIN 3.2 g/dL (3.4-5.0); ALKALINE PHOSPHATASE 97 U/L (50-136); ASPARTATE AMINOTRANSFERASE 17 U/L (15-37); BILIRUBIN,TOTAL 0.3 mg/dL (0.2-1.0); CALCIUM 9.3 mg/dL (8.5-10.1); CARBON DIOXIDE 22 mmol/L (21-32); CHLORIDE 102 mmol/L (98-107); CREATININE 1.6 mg/dL (0.6-1.3); GLUCOSE 145 mg/dL (74-106); MAGNESIUM 1.8 mg/dL (1.8-2.4); PHOSPHOROUS 3.8 mg/dL (2.5-4.9); POTASSIUM 4.9 mmol/L (3.5-5.1); SODIUM SERUM 134 mmol/L (136-145); TOTAL PROTEIN, SERUM 6.9 g/dL (6.4-8.2); UREA NITROGEN, BLOOD 39 mg/dL (7-18)
[2024-08-11 08:24] VITALS: BP 96/48; TEMP 98.5; O2SAT 96
[2024-08-11] MEDS ORDERED: LAMOTRIGINE 25 MG TABLET PO SCH (09:00)
[2024-08-11] MEDS: LAMOTRIGINE 100 MG TABLET PO SCH (09:57)
[2024-08-11 16:33] VITALS: BP 163/82; TEMP 98.1; O2SAT 98
[2024-08-11 20:00] VITALS: BP 90/57; TEMP 97.8; O2SAT 94
[2024-08-12 07:57] VITALS: BP 113/50; TEMP 98; O2SAT 94
[2024-08-12 08:22] LABS: BASOPHILS # (AUTO) 0.1 K/UL (0.0-0.2); BASOPHILS % (AUTO) 1.1 % (0.0-2.0); EOSINOPHILS # (AUTO) 0.7 K/uL (0.0-0.7); EOSINOPHILS % (AUTO) 8.5 % (0.0-7.0); HEMATOCRIT 46.7 % (36.7-47.1); HEMOGLOBIN 15.6 g/dL (12.5-16.3); LYMPHOCYTES # (AUTO) 1.6 K/uL (0.8-4.8); LYMPHOCYTES % (AUTO) 19.5 % (20.5-51.5); MEAN CORPUSCULAR HEMOGLOBIN 28.7 uug (23.8-33.4); MEAN CORPUSCULAR HGB CONC 33 g/dL (32.5-36.3); MONOCYTES # (AUTO) 0.5 K/uL (0.1-1.30); MONOCYTES % (AUTO) 6.3 % (0.0-11.0); NEUTROPHILS # (AUTO) 5.4 K/uL (1.8-8.9); NEUTROPHILS % (AUTO) 64.6 % (38.5-71.5); PLATELET COUNT (AUTO) 187 K/uL (152-348); RED BLOOD CELL COUNT(AUTO) 5.43 MIL/uL (4.06-5.63); RED CELL DISTRIBUTION WIDTH 13.9 % (12.1-16.2); WHITE BLOOD COUNT (AUTO) 8.4 K/uL (3.6-10.2)
[2024-08-12 08:34] LABS: DIFFERENTIAL COMMENT 1
[2024-08-12 08:45] LABS: ALANINE AMINOTRANSFERASE 22 U/L (16-63); ALBUMIN 3.3 g/dL (3.4-5.0); ALKALINE PHOSPHATASE 93 U/L (50-136); ASPARTATE AMINOTRANSFERASE 17 U/L (15-37); BILIRUBIN,TOTAL 0.6 mg/dL (0.2-1.0); CALCIUM 9.3 mg/dL (8.5-10.1); CARBON DIOXIDE 24 mmol/L (21-32); CHLORIDE 104 mmol/L (98-107); CREATININE 1.3 mg/dL (0.6-1.3); GLUCOSE 128 mg/dL (74-106); MAGNESIUM 1.9 mg/dL (1.8-2.4); PHOSPHOROUS 3.3 mg/dL (2.5-4.9); POTASSIUM 4.5 mmol/L (3.5-5.1); SODIUM SERUM 135 mmol/L (136-145); TOTAL PROTEIN, SERUM 7.3 g/dL (6.4-8.2); UREA NITROGEN, BLOOD 31 mg/dL (7-18)
[2024-08-12 09:00] VITALS: BP 115/50
== END 2024-08-12 10:00 | DRG 885 ==
LOC: ER 18:37 → GPS 21:50
PROVIDERS: ADMIT Psychiatry & Neurology Psychiatry; ATTEND Nurse Practitioner Family
DX: F33.3 Major depressive disorder, recurrent, severe with psychotic symptoms (principal); N17.9 Acute kidney failure, unspecified; I82.0 Budd-Chiari syndrome; G93.41 Metabolic encephalopathy; F03.92 Unspecified dementia, unspecified severity, with psychotic disturbance; F03.93 Unspecified dementia, unspecified severity, with mood disturbance; E11.42 Type 2 diabetes mellitus with diabetic polyneuropathy; G40.909 Epilepsy, unspecified, not intractable, without status epilepticus; M89.8X9 Other specified disorders of bone, unspecified site; M81.0 Age-related osteoporosis without current pathological fracture; E78.5 Hyperlipidemia, unspecified; I10 Essential (primary) hypertension; D72.829 Elevated white blood cell count, unspecified; Z79.4 Long term (current) use of insulin; Z79.82 Long term (current) use of aspirin; Z79.899 Other long term (current) drug therapy; Z87.820 Personal history of traumatic brain injury
CPT/HCPCS: 36415; 83735; 84100; 84443; 85025; G0480; J8499